=== PATIENT | female | born 1940 | race Caucasian/White ===

== ENCOUNTER 2020-04-05 08:52 | Outpatient (REF) | payer OTHER, SELFPAY | END 2020-04-05 08:53 | disposition home or self-care (01) | LOC: HO.LAB 08:52 | PROVIDERS: Visit Provider Internal Medicine | DX: Z20.822 Contact with and (suspected) exposure to COVID-19 (principal) | CPT/HCPCS: 36415; C9803; U0003; U0005 ==

== ENCOUNTER 2022-10-11 20:59 | Emergency (ER) | payer OTHER, SELFPAY ==
--- NOTE | ~2022-10-11 | CT_ITS ---
EXAMINATION: CT HEAD WITHOUT CONTRAST CT CERVICAL SPINE WITHOUT CONTRAST CT MAXILLOFACIAL WITHOUT CONTRAST CLINICAL INFORMATION: Fall. Head strike. Nasal bridge swelling/laceration. COMPARISON: None. TECHNIQUE: Multidetector volumetric imaging of the head was performed without the administration of intravenous contrast. Images were also obtained with through the cervical spine as well as the facial bones from the frontal sinuses through the mandible. Multiplanar reconstructed images in coronal and sagittal orientations were submitted. This CT examination was performed using dose optimization techniques as appropriate, variously including the following: *Automated exposure control *Adjustment of mA and/or kV according to patient size (this includes techniques or standardized protocols for targeted exams where dose is matched to indication/reason for exam; i.e. extremities or head) *Use of iterative reconstruction technique DOSE: 1079. mGy-cm FINDINGS: HEAD: There is no evidence of acute intracranial hemorrhage or territorial infarction. No abnormal mass-effect or midline shift. No extra-axial fluid collections. Brito to white matter differentiation is well preserved. Mild enlargement of the ventricles, sulci, and extra-axial CSF spaces is indicative of parenchymal volume loss. Dystrophic calcifications are present in the basal ganglia bilaterally. Numerous areas of hypoattenuation in the subcortical and periventricular white matter are most consistent with chronic microangiopathic changes. Calcific atherosclerosis is present within the cavernous segments of the internal carotid arteries. Globes are aphakic. Mild soft tissue swelling in the left superolateral periorbital region. No calvarial or skull base fractures are identified. The sinuses and mastoid air cells are clear. MAXILLOFACIAL: There is a mildly depressed fracture of the nasal bone which is asymmetric to the left. The mandible, maxilla, pterygoid plates, zygomatic arches, paranasal sinus mcnamara, and bony orbits are intact. No acute osseous abnormality within the maxillofacial region. Maxilla and mandible are edentulous. Maxillary dentures are in place. 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 Globes are aphakic. No post septal abnormalities. Intraconal and extraconal fat is normal, as are the extraocular muscles. The paranasal sinuses and mastoid air cells remain well-aerated. CERVICAL SPINE: Vertebral body heights are normal. No fractures of the vertebral bodies or posterior elements. Vertebral alignment is normal. No subluxation. The craniocervical and atlantoaxial articulations are normal. Qbwh-jt-dthmohkt multilevel degenerative disc disease in the cervical spine is most notable between C3-C4 and C5-C6. There is vwky-se-lpdwgpfx facet arthropathy on the left at C2-C3. Small posterior disc osteophyte complexes produce minimal central canal narrowing at multiple levels without appreciable critical central canal narrowing. Mild multilevel neural foraminal encroachment is produced by uncovertebral osteophytes. No significant paravertebral soft tissue swelling. Atherosclerotic calcifications are present in the carotid arteries. Imaged portions of the lung apices are clear. CT/CT cervical spine wo IV con IMPRESSION: 1. No acute intracranial pathology. Mild parenchymal volume loss and moderate chronic white matter microangiopathy. 2. Mildly depressed fracture of the nasal bone. No additional facial fractures. 3. No acute fracture or malalignment in the cervical spine. Tzmh-nt-gilctcuy multilevel degenerative disc disease.
--- NOTE | ~2022-10-11 | XR_ITS ---
EXAMINATION: XR knee LT 4V, XR knee RT 4V CLINICAL INFORMATION: Additional Information: pain, trauma : COMPARISON: None. TECHNIQUE: 4 views of the left knee. 4 views of the right knee. FINDINGS: Left knee: No fracture or subluxation. Mild to moderate tricompartmental joint space narrowing with marginal osteophytes noted. No joint effusion. Right knee: Total right knee arthroplasty. The femoral component articulates appropriately with the tibial and patellar components. No periprosthetic lucency or fracture. No definite joint effusion, although overlying material limits visualization on the lateral view. There appears to be medial soft tissue swelling. XR/XR knee LT 4V IMPRESSION: 1. 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 Medial soft tissue swelling. 2. Mild to moderate tricompartmental degenerative changes of the left knee.
--- NOTE | ~2022-10-11 | XR_ITS ---
EXAMINATION: XR knee LT 4V, XR knee RT 4V CLINICAL INFORMATION: Additional Information: pain, trauma : COMPARISON: None. TECHNIQUE: 4 views of the left knee. 4 views of the right knee. FINDINGS: Left knee: No fracture or subluxation. Mild to moderate tricompartmental joint space narrowing with marginal osteophytes noted. No joint effusion. Right knee: Total right knee arthroplasty. The femoral component articulates appropriately with the tibial and patellar components. No periprosthetic lucency or fracture. No definite joint effusion, although overlying material limits visualization on the lateral view. There appears to be medial soft tissue swelling. XR/XR knee RT 4V IMPRESSION: 1. 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 Medial soft tissue swelling. 2. Mild to moderate tricompartmental degenerative changes of the left knee.
--- NOTE | 2022-10-11 07:22 | ECG_ITS ---
Test Reason : FALL Blood Pressure : / mmHG Vent. Rate : 072 BPM Atrial Rate : 072 BPM P-R Int : 140 ms QRS Dur : 132 ms QT Int : 438 ms P-R-T Axes : 043 -31 105 degrees QTc Int : 479 ms Normal sinus rhythm Left axis deviation Left bundle branch block Abnormal ECG No previous ECGs available Referred By: Mili Kay Electronically Signed By:ALENA DAILEY
[2022-10-11 21:05] VITALS: BP 160/90; BP 189/79; PULSE 74; PULSE 80; RESP 17; TEMP 37.4; O2SAT 94; O2SAT 95; BMI 27.0
[2022-10-11 21:56] LABS: Hematocrit 42.6 % (37.0-47.0); Hemoglobin 13.4 g/dl (12.0-16.0); Mean Corpuscular HGB Conc 31.5 g/dl (31.0-35.0); Mean Corpuscular Hemoglobin 26.3 pg (27.0-33.0); Mean Corpuscular Volume 83.5 fL (80.0-98.0); Mean Platelet Volume 10.5 fL (9.4-12.3); Platelet Count 282 X10*3/uL (160-400); Red Cell Distribution Width 13.8 % (11.0-16.0); White Blood Count 12.4 X10*3/uL (4.8-10.8)
[2022-10-11 22:13] LABS: Alanine Aminotransferase 10 U/L (0-31); Albumin Level 3.4 g/dL (3.5-5.0); Alkaline Phosphatase 117 U/L (39-117); Anion Gap 12 (12-20); Aspartate Amino Transferase 11 U/L (5-31); Bilirubin Total 0.3 mg/dL (0.0-1.0); Blood Urea Nitrogen 15 mg/dL (9-16); Calcium 9.5 mg/dL (8.4-10.2); Carbon Dioxide 30 mmol/L (22-29); Chloride 101 mmol/L (96-108); Creatinine Clr Calc Pharmacy 39.1; Estimated Glomerular Filt Rate 60; Glucose Random 336 mg/dL (60-115); Potassium 4.7 mmol/L (3.3-5.1); Sodium 138 mmol/L (135-145); Total Protein 6.8 g/dL (6.5-8.0)
[2022-10-11 22:22] LABS: Troponin-I High Sensitivity < 2.7 ng/L (<3.5-17.0)
[2022-10-11 22:56] LABS: Appearance Urine Clear; Color Urine Yellow; Glucose Urine UA >=1000 mg/dL (Negative); Leukocyte Esterase Urine Negative (Negative); Nitrite Urine Positive (Negative); Specific Gravity - Urine >= 1.030 (1.005-1.025); UMIC TRIGGER UACC YES; Urine Blood Negative (Negative); Urine Ketones Negative (Negative); Urine Protein Negative (Neg-Trace)
[2022-10-11 23:00] LABS: Bacteria Urine 4+ (None Seen); Hyaline Casts Urine 0-2 /LPF (0-2); RBC Urine 0-2 /HPF (0-2); Squamous Epithelial Cell Urine 0-2 /HPF (0-2); UACC Culture Trigger YES
[2022-10-11 23:10] VITALS: BP 174/62; PULSE 71; RESP 16; TEMP 36.8; O2SAT 96
--- NOTE | 2022-10-11 23:57 | ED.FALL ---
HPI - Fall General Chief Complaint: Fall Stated Complaint: FALL W/HS, LACERATIONS ON NOSE PER EMS Time Seen by Provider: 10/11/22 23:08 Source: patient, family and EMS Mode of arrival: EMS Limitations: language barrier (Malagasy-speaking associate marketing manager utilized) History of Present Illness HPI Narrative: Patient is an 82-year-old female who presents to the emergency department via EMS for evaluation after a fall. Patient was in her bedroom sitting in a recliner chair. Typically patient's daughter assists her with medication administration. Tonight patient attempted to retrieve her medications which were across the room on the night stand on her own. She typically uses a walker at baseline she was not using her walker olga lidia. Her daughter was downstairs when she heard a loud noise and she presented upstairs immediately finding patient on the floor face down. Patient was awake and asking for help to get up. Patient was assisted to a sitting position and EMS was called. She has a laceration to the bridge of the nose which was actively bleeding. Patient denied any loss of consciousness. Denies the use of anticoagulants or coagulation disorders. She is having pain to the frontal region of the head. Denies vision changes, dizziness, lightheadedness, neck pain, chest pain, shortness of breath, nausea, vomiting. She additionally is reporting bilateral knee pain. Patient endorses dysuria that has been present for approximately 2 weeks, reportedly was just mention to daughter yesterday. Denies fevers or chills. Related Data Previous Rx's Medication Instructions Recorded cefuroxime axetil 500 mg tablet 500 mg PO BID #13 tabs 10/12/22 Allergies Allergy/AdvReac Type Severity Reaction Status Date / Time Unable to Assess Allergy Unverified 10/11/22 23:09 Review of Systems Review of Systems: Pertinent positives as per HPI Yes all other systems are reviewed and are negative PMFSH Past Medical History Attestation statement: The following information was validated with the patient. Source: old records reviewed Social History Social History Alcohol intake: unknown Smoked in Last 30 Days: No Use of substances other than those prescribed or required for medical reasons: No Advance Directives: No Advance Directives Information Provided: Yes Physical Exam Vital Signs: Vital Signs: Last Vital Signs Temp 98.2 F 10/11/22 23:10 Pulse 71 10/11/22 23:10 Resp 16 10/11/22 23:10 BP 174/62 H 10/11/22 23:10 Pulse Ox 96 10/11/22 23:10 O2 Del Method Room Air 10/11/22 23:10 BMI result Body Mass Index 27.0 Appearance: Alert.?Oriented to person, place and time. No acute distress.?Normal affect. Head: Normocephalic. No scalp lacerations Eyes: Pupils equal, round and reactive to light. EOMI. Conjunctiva and sclera normal? No Robison sign noted. No raccoon eyes noted. hematoma presenting to lateral left eyebrow ENT: No septal hematoma, localized swelling to the nasal bridge, superficial laceration present, with deformity, no active bleeding. External auditory canal normal tympanic membrane pearly crawford and intact bilaterally. Dentition normal, no fractured teeth. No lesions or lacerations of oropharynx. Uvula midline. Moist mucous membranes. Neck: Normal inspection.? Neck supple.??No palpable tenderness, step-off, deformities. CVS: Heart sounds normal. Normal heart rate and rhythm.? Pulses normal.?? Respiratory: No respiratory distress.? Lung sounds clear to auscultation bilaterally?? Abdomen: Soft and non-tender. Normoactive bowel sounds. ?? Skin: Skin warm and dry.? Normal skin color.? Normal skin turgor.?? Extremities: No lower extremity edema.? Bilateral knees with decreased AROM, localized bruising, tenderness upon palpation, no obvious deformity. 2+ DP/PT pulse bilaterally. Neuro: Moves all extremities spontaneously. Sensation intact bilaterally. CN II-XII intact. No focal neuro deficits. Course Reevaluation(s) Reevaluation #1: CT revealing no acute intracranial pathology, there is mildly depressed fracture of the nasal bone, cervical spine is without acute fracture malalignment, degenerative disc disease is present. No epistaxis upon examination, no septal hematoma present, will refer to ENT for further follow-up. Given presence of laceration over nasal bridge patient had Tdap updated. Urinalysis consistent with urinary tract infection, received initial dosage of cefuroxime while in the emergency department, this will also prophylactically cover any infection from nasal laceration. Time: 00:58 Reevaluation #2: XR the bilateral knees without acute fracture, dislocation, or hardware failure. Reviewed all findings with patient and daughter. At this time feel the patient is stable for discharge home. They are agreeable with plan of care. We reviewed worrisome signs symptoms that would warrant re-evaluation in the emergency department. All questions were answered. Time: 01:52 Medications Administered Discontinued Medications Generic Name Dose Route Start Last Admin Trade Name Jose Eduardo PRN Reason Stop Dose Admin Acetaminophen 975 mg 10/12/22 00:16 10/12/22 01:38 Acetaminophen 325 Mg Tablet PO 10/12/22 00:17 975 mg ONCE ONE Administration Cefuroxime Axetil 500 mg 10/11/22 23:10 10/12/22 01:38 Cefuroxime Axetil 500 Mg Tablet PO 10/11/22 23:11 500 mg ONCE ONE Administration Tramadol HCl 50 mg 10/12/22 01:14 10/12/22 01:39 Tramadol Hcl 50 Mg Tablet PO 10/12/22 01:15 50 mg ONCE ONE Administration Medical Decision Making Medical Decision Making [facility] Narrative: Patient is an 82-year-old female presents emergency department via EMS for evaluation after a fall as per HPI. She uses a walker at baseline but she was not using at the time of the fall, patient and daughter feel as though fall was mechanical in nature. However will obtain serum labs and urinalysis for evaluation of alternative etiology. She has no focal neurological deficits upon examination, she has significant bruising and swelling to the nasal bridge with deformity and hematoma to the left breast. Clinically does not appear to have and signs of entrapment. Will obtain CT of the head, cervical spine, and facial bones to evaluate for ICH, SDH, fracture, traumatic subluxation. Full AROM intact to the bilateral upper extremities. Bilateral knees with mild decreased AROM, tenderness upon palpation with bruising. Will obtain XR imaging to exclude fracture or dislocation. Urinalysis to evaluate for infection Differential Diagnosis Differential Diagnoses: The differential diagnosis associated with the presentation includes (As noted above) Lab Data [facility] Lab Attestation statement: I reviewed the patient's lab results. CBC reveals a mild leukocytosis of 12.4, CMP is overall unremarkable aside from elevated glucose at 03:36, with history of diabetes. Troponin < 2.7. Urinalysis consistent with urinary tract infection 10/11/22 21:46 10/11/22 21:46 Labs: Lab Results 10/11/22 10/11/22 10/11/22 Range/Units 21:46 21:46 21:46 WBC 12.4 H (4.8-10.8) X10*3/uL RBC 5.10 (4.20-5.50) X10*6/uL Hgb 13.4 (12.0-16.0) g/dl Hct 42.6 (37.0-47.0) % MCV 83.5 (80.0-98.0) fL MCH 26.3 L (27.0-33.0) pg MCHC 31.5 (31.0-35.0) g/dl RDW 13.8 (11.0-16.0) % Plt Count 282 (160-400) X10*3/uL MPV 10.5 (9.4-12.3) fL Absolute Nucleated RBC 0.000 (0.0-0.012) X10*3/uL Nucleated RBC % (auto) 0.0 (0.0-0.2) /100WBC Sodium 138 (135-145) mmol/L Potassium 4.7 (3.3-5.1) mmol/L Chloride 101 (96-108) mmol/L Carbon Dioxide 30 H (22-29) mmol/L Anion Gap 12 (12-20) BUN 15 (9-16) mg/dL Creatinine 0.90 (0.5-1.4) mg/dL Estim Creat Clear Calc 39.1 Estimated GFR 60 Random Glucose 336 H (60-115) mg/dL Calcium 9.5 (8.4-10.2) mg/dL Total Bilirubin 0.3 (0.0-1.0) mg/dL AST 11 (5-31) U/L ALT 10 (0-31) U/L Alkaline Phosphatase 117 (39-117) U/L Troponin I High Sens < 2.7 (<3.5-17.0) ng/L Total Protein 6.8 (6.5-8.0) g/dL Albumin 3.4 L (3.5-5.0) g/dL Urine Color Urine Appearance Urine pH (5.0-9.0) Ur Specific [employer] (1.005-1.025) Urine Protein (Neg-Trace) mg/dL Urine Glucose (UA) (Negative) mg/dL Urine Ketones (Negative) mg/dL Urine Blood (Negative) Urine Nitrite (Negative) Ur Leukocyte Esterase (Negative) Urine RBC (0-2) /HPF Urine WBC (0-5) /HPF Ur Squamous Epith Cells (0-2) /HPF Urine Bacteria (None Seen) Hyaline Casts (0-2) /LPF 10/11/22 Range/Units 22:46 WBC (4.8-10.8) X10*3/uL RBC (4.20-5.50) X10*6/uL Hgb (12.0-16.0) g/dl Hct (37.0-47.0) % MCV (80.0-98.0) fL MCH (27.0-33.0) pg MCHC (31.0-35.0) g/dl RDW (11.0-16.0) % Plt Count (160-400) X10*3/uL MPV (9.4-12.3) fL Absolute Nucleated RBC (0.0-0.012) X10*3/uL Nucleated RBC % (auto) (0.0-0.2) /100WBC Sodium (135-145) mmol/L Potassium (3.3-5.1) mmol/L Chloride (96-108) mmol/L Carbon Dioxide (22-29) mmol/L Anion Gap (12-20) BUN (9-16) mg/dL Creatinine (0.5-1.4) mg/dL Estim Creat Clear Calc Estimated GFR Random Glucose (60-115) mg/dL Calcium (8.4-10.2) mg/dL Total Bilirubin (0.0-1.0) mg/dL AST (5-31) U/L ALT (0-31) U/L Alkaline Phosphatase (39-117) U/L Troponin I High Sens (<3.5-17.0) ng/L Total Protein (6.5-8.0) g/dL Albumin (3.5-5.0) g/dL Urine Color Yellow Urine Appearance Clear Urine pH 6.0 (5.0-9.0) Ur Specific [employer] >= 1.030 H (1.005-1.025) Urine Protein Negative (Neg-Trace) mg/dL Urine Glucose (UA) >=1000 H (Negative) mg/dL Urine Ketones Negative (Negative) mg/dL Urine Blood Negative (Negative) Urine Nitrite Positive H (Negative) Ur Leukocyte Esterase Negative (Negative) Urine RBC 0-2 (0-2) /HPF Urine WBC 6-10 H (0-5) /HPF Ur Squamous Epith Cells 0-2 (0-2) /HPF Urine Bacteria 4+ (None Seen) Hyaline Casts 0-2 (0-2) /LPF Independent Interpretation I performed an independent interpretation of an: Plain X-Ray (I personally interpreted XR imaging of the bilateral knees, no acute fracture dislocation, hardware to the right knee appears intact) Radiology Impression Discussion of test interpretation with radiology: I have reviewed the radiologist's reading. Radiologist Impression: CT/CT head/brain wo IV con IMPRESSION: 1.? No acute intracranial pathology. Mild parenchymal volume loss and moderate chronic white matter microangiopathy. 2.? Mildly depressed fracture of the nasal bone. No additional facial fractures. 3.? No acute fracture or malalignment in the cervical spine. Hqka-kj-sasyxgnx multilevel degenerative disc disease. XR/XR knee RT 4V IMPRESSION: 1.? 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 Medial soft tissue swelling. 2.? Mild to moderate tricompartmental degenerative changes of the left knee. Independent Historian Clinical information obtained from an independent historian. History obtained from or confirmed by: Other (Daughters present at bedside who confirms history) External Record Review External record reviewed: Outpatient record Prescription Management I considered prescription management with: Antibiotic Discharge Plan Discharge Clinical Impression: Urinary tract infection, Acute head injury without loss of consciousness, Fracture of nasal bone, Fall Patient Disposition: Home, Self-Care Additional Instructions: Complete the entire course of antibiotic as prescribed for management of urinary tract infection. Contact ENT office tomorrow morning for follow-up regarding the nasal bone fracture. Contact primary care provider to arrange for a follow-up visit within 1-3 days. Return back to emergency department any new or worsening symptoms or concerns. Use walker at all times. Prescriptions: New cefuroxime axetil 500 mg tablet 500 mg PO BID Qty: 13 0RF Referrals: Bre Samuel NP [Primary Care Provider] - Rod Carmona [Physician] -
[2022-10-12] MEDS: Acetaminophen 325 MG TABLET 975 MG PO (01:38)
[2022-10-12] MEDS: traMADoL HCL 50 MG TABLET PO (01:39)
[2022-10-12] MEDS: Diphth,Pertus(ACell),Tet Adult 0.5 ML SYRINGE IM (02:19)
[2022-10-12 02:26] VITALS: BP 170/97; PULSE 69; RESP 17; TEMP 36.8; O2SAT 98
--- NOTE | 2022-10-12 02:26 | PC.NURSE ---
BP 170/97. Patient symptomatic-denies headache, chest pain. Dr. Regina mota.
== END 2022-10-12 02:36 | disposition home or self-care (01) ==
PROVIDERS: Emergency Provider Emergency Medicine Emergency Medical Services; PCP Nurse Practitioner
DX: S00.01XA Abrasion of scalp, initial encounter (principal); S02.2XXA Fracture of nasal bones, initial encounter for closed fracture; N39.0 Urinary tract infection, site not specified; R51.9 Headache, unspecified; M54.2 Cervicalgia; R07.89 Other chest pain; M25.562 Pain in left knee; M25.561 Pain in right knee; W01.10XA Fall on same level from slipping, tripping and stumbling with subsequent striking against unspecified object, initial encounter; Y93.9 Activity, unspecified; Y92.9 Unspecified place or not applicable; Y99.9 Unspecified external cause status; Z79.899 Other long term (current) drug therapy
CPT/HCPCS: 36415; 70450; 70486; 72125; 73564; 80053; 81001; 84484; 85027; 87086; 87088; 87186; 90715; 93005; 99284

== ENCOUNTER 2023-09-26 22:03 | Emergency (ER) | payer OTHER, SELFPAY ==
--- NOTE | ~2023-09-26 | XR_ITS ---
EXAMINATION: CHEST WITH LEFT RIBS, LEFT SHOULDER, LEFT HIP, LEFT KNEE CLINICAL INFORMATION: Fall with pain COMPARISON: Left knee 10/12/2022 TECHNIQUE: Single view chest with 3 additional views left RIBS, 3 views left shoulder, single view pelvis with 2 additional views left hip, 2 views left knee FINDINGS: Chest and Ribs: No significant abnormalities seen involving the heart, lungs, mediastinum and bony thorax. Left shoulder: Degenerative changes are present at the AC joint and at the glenohumeral humeral joint with osteophytes. No fractures or dislocations. Pelvis and left hip degenerative changes are present in the visualized lower lumbosacral spine. No pelvic fracture or hip fracture is seen. Left knee: Moderate tricompartmental degenerative changes are seen with narrowing in all 3 compartments. No chondrocalcinosis, fractures or dislocations. XR/XR shoulder LT min 2V IMPRESSION: 1. No evidence of an acute traumatic injury. 2. Degenerative changes in the left shoulder, left knee and lower lumbosacral spine.
--- NOTE | ~2023-09-26 | XR_ITS ---
EXAMINATION: CHEST WITH LEFT RIBS, LEFT SHOULDER, LEFT HIP, LEFT KNEE CLINICAL INFORMATION: Fall with pain COMPARISON: Left knee 10/12/2022 TECHNIQUE: Single view chest with 3 additional views left RIBS, 3 views left shoulder, single view pelvis with 2 additional views left hip, 2 views left knee FINDINGS: Chest and Ribs: No significant abnormalities seen involving the heart, lungs, mediastinum and bony thorax. Left shoulder: Degenerative changes are present at the AC joint and at the glenohumeral humeral joint with osteophytes. No fractures or dislocations. Pelvis and left hip degenerative changes are present in the visualized lower lumbosacral spine. No pelvic fracture or hip fracture is seen. Left knee: Moderate tricompartmental degenerative changes are seen with narrowing in all 3 compartments. No chondrocalcinosis, fractures or dislocations. XR/XR hip LT w PEL1V IMPRESSION: 1. No evidence of an acute traumatic injury. 2. Degenerative changes in the left shoulder, left knee and lower lumbosacral spine.
--- NOTE | ~2023-09-26 | XR_ITS ---
EXAMINATION: CHEST WITH LEFT RIBS, LEFT SHOULDER, LEFT HIP, LEFT KNEE CLINICAL INFORMATION: Fall with pain COMPARISON: Left knee 10/12/2022 TECHNIQUE: Single view chest with 3 additional views left RIBS, 3 views left shoulder, single view pelvis with 2 additional views left hip, 2 views left knee FINDINGS: Chest and Ribs: No significant abnormalities seen involving the heart, lungs, mediastinum and bony thorax. Left shoulder: Degenerative changes are present at the AC joint and at the glenohumeral humeral joint with osteophytes. No fractures or dislocations. Pelvis and left hip degenerative changes are present in the visualized lower lumbosacral spine. No pelvic fracture or hip fracture is seen. Left knee: Moderate tricompartmental degenerative changes are seen with narrowing in all 3 compartments. No chondrocalcinosis, fractures or dislocations. XR/XR ribs LT min 3V w CXR1V IMPRESSION: 1. No evidence of an acute traumatic injury. 2. Degenerative changes in the left shoulder, left knee and lower lumbosacral spine.
--- NOTE | ~2023-09-26 | XR_ITS ---
EXAMINATION: CHEST WITH LEFT RIBS, LEFT SHOULDER, LEFT HIP, LEFT KNEE CLINICAL INFORMATION: Fall with pain COMPARISON: Left knee 10/12/2022 TECHNIQUE: Single view chest with 3 additional views left RIBS, 3 views left shoulder, single view pelvis with 2 additional views left hip, 2 views left knee FINDINGS: Chest and Ribs: No significant abnormalities seen involving the heart, lungs, mediastinum and bony thorax. Left shoulder: Degenerative changes are present at the AC joint and at the glenohumeral humeral joint with osteophytes. No fractures or dislocations. Pelvis and left hip degenerative changes are present in the visualized lower lumbosacral spine. No pelvic fracture or hip fracture is seen. Left knee: Moderate tricompartmental degenerative changes are seen with narrowing in all 3 compartments. No chondrocalcinosis, fractures or dislocations. XR/XR knee LT 2V IMPRESSION: 1. No evidence of an acute traumatic injury. 2. Degenerative changes in the left shoulder, left knee and lower lumbosacral spine.
[2023-09-26 22:12] VITALS: BP 151/59; PULSE 76; RESP 16; TEMP 36.7; O2SAT 94; BMI 24.9
[2023-09-26 22:45] LABS: Appearance Urine Clear; Color Urine Yellow; Glucose Urine UA >=1000 mg/dL (Negative); Leukocyte Esterase Urine Negative (Negative); Nitrite Urine Negative (Negative); PH 5.5 (5.0-9.0); Specific Gravity - Urine >= 1.030 (1.005-1.025); UMIC TRIGGER UACC YES; Urine Blood Negative (Negative); Urine Ketones Negative (Negative); Urine Protein Negative (Neg-Trace)
[2023-09-26 22:47] LABS: Bacteria Urine Trace (None Seen); Hyaline Casts Urine 0-2 /LPF (0-2); RBC Urine 0-2 /HPF (0-2); WBC Urine 0-5 /HPF (0-5)
--- NOTE | 2023-09-26 22:58 | ED_ITS ---
HPI - General Adult General Chief complaint: Extremity Injury, Lower Stated complaint: Lt leg pain, fell 09/24 @ 1100 @ home Time Seen by Provider: 09/26/23 22:21 Source: patient and family Mode of arrival: ambulatory Limitations: no limitations History of Present Illness ED Provider: Dr. Carley Borges HPI narrative: Patient comes to the emergency room complaining of a fall. According to the patient's daughter, the patient is supposed to wait for her daughter to help her walk. However, patient grab her walker and decided to try to walk out of the house by herself. Patient fell, landed on the left side of her body. Patient did not hit her head and did not lose consciousness, patient not on blood thinners. Patient states that yesterday patient was complaining of left shoulder pain left rib pain in the hip pain. However, patient was still able to ambulate. This morning, the daughter reports that now the patient has trouble walking, the patient complaining of knee pain. Patient has also left shoulder pain but is still able to move her arm with normal range of motion. Patient states that otherwise she feels well. Denies headache, no neck pain. Related Data Previous Rx's ?Medication ?Instructions ?Recorded cefuroxime axetil 500 mg tablet 500 mg PO BID #13 tabs 10/12/22 acetaminophen 500 mg tablet 500 mg PO QID PRN fever or pain 09/27/23 #20 tabs ibuprofen 600 mg tablet 600 mg PO Q8H PRN fever or pain 09/27/23 #20 tabs Allergies Allergy/AdvReac Type Severity Reaction Status Date / Time Penicillins Allergy Rash Verified 09/26/23 22:22 Review of Systems Review of Systems: Constitutional : No Weight loss, No Fever, No Chills, No Night Sweats, No Fatigue, No Malaise ENT/Mouth : No Hearing loss, No Ear Pain, No Nasal Congestion, No Sinus Pain, No Hoarseness, No sore throat, No Rhinorrhea, No Swallowing Difficulty Eyes: No Eye Pain, No Swelling, No Redness, No Foreign Body, No Discharge, No Vision Changes Cardiovascular : No Chest Pain, No SOB, No Dyspnea on Exertion, No Orthopnea, No Edema, No Palpitations Respiratory : No Cough, No Sputum, No Wheezing, No Smoke Exposure, No Dyspnea Gastrointestinal : No Nausea, No Vomiting, No Diarrhea, No Constipation, No a bdominal Pain, No Hematochezia, No Melena Genitourinary : no irregular bleeding, No Dysuria, No Urinary Frequency, No Hematuria, No Urinary Incontinence, No Urgency, No Flank Pain, No Urinary Flow Changes, No Hesitancy Musculoskeletal : Complaining of left shoulder/hip/knee pain Skin : No Skin Lesions, No rash Neuro : No Weakness, No Numbness, No Paresthesias, No Loss of Consciousness, No Dizziness, No Headache Psych : No Anxiety/Panic, No Depression, No SI/HI/AH/VH, No Social Issues, Heme/Lymph: No Bruising, No Bleeding,No Lymphadenopathy Endocrine : No Polyuria, No Polydipsia, No Temperature Intolerance [facility] Past Medical History Medical History (Updated 09/27/23 @ 00:14 by Carley Borges MD) Multiple falls Diabetes Social History Social History Alcohol intake: unknown Smoked in Last 30 Days: No Advance Directives: No Advance Directives Information Provided: No Physical Exam ED Vital Signs: Vital Signs - 24 hr 09/26/23 22:12 Temperature 98.1 F Pulse Rate 76 Respiratory Rate 16 Blood Pressure 151/59 H Pulse Oximetry 94 Oxygen Delivery Method Room Air BMI result Body Mass Index 24.9 Const Other: Appearance: Alert. Oriented X3. No acute distress. Eyes: Pupils equal, round and reactive to light. ENT: Pharynx normal. Neck: Normal inspection. Neck supple. No lymph nodes noted. No crepitus CVS: Normal heart rate and rhythm. Pulses normal. Normal S1 and S2 Respiratory: No respiratory distress. Breath sounds normal. No Wheezing. No rales Abdomen: Soft and nontender. No rigidity. No distention. Musculoskeletal. Pain to palpation over the ribs on the left side Skin: Skin warm and dry. Normal skin color. Normal skin turgor. Extremities: No lower extremity edema. No Lacerations. No Rash, pain to palpation over the left knee, able to flex and extend the ankle and the hip Neuro: Oriented X 3. No motor deficit. No sensory deficit. Moving all extremities. No slurred speech. CN 2 through 12 grossly intact Psych: calm, cooperative, normal affect Course Course Course Narrative: -urinalysis pending -x-rays pending Medical Decision Making Lab Data Labs: Lab Results 09/26/23 Range/Units 22:39 Urine Color Yellow Urine Appearance Clear Urine pH 5.5 (5.0-9.0) Ur Specific [place] >= 1.030 H (1.005-1.025) Urine Protein Negative (Neg-Trace) mg/dL Urine Glucose (UA) >=1000 H (Negative) mg/dL Urine Ketones Negative (Negative) mg/dL Urine Blood Negative (Negative) Urine Nitrite Negative (Negative) Ur Leukocyte Esterase Negative (Negative) Urine RBC 0-2 (0-2) /HPF Urine WBC 0-5 (0-5) /HPF Ur Squamous Epith Cells 3-5 (0-2) /HPF Urine Bacteria Trace (None Seen) Hyaline Casts 0-2 (0-2) /LPF Discharge Plan Discharge Clinical Impression: COVID Patient Disposition: Home, Self-Care Instructions: Contusion in Adults (ED), Knee Pain (ED) Additional Instructions: Please follow-up with your primary care physician tomorrow. If you have any worsening or new symptoms, please return to the emergency room or call 911 Prescriptions: New ibuprofen 600 mg tablet 600 mg PO Q8H PRN (Reason: fever or pain) Qty: 20 0RF acetaminophen 500 mg tablet 500 mg PO QID PRN (Reason: fever or pain) Qty: 20 0RF No Action cefuroxime axetil 500 mg tablet 500 mg PO BID Qty: 13 0RF Interventions: ED Discharge Assessment Last Done: 09/27/23 00:20 Discharge Date/Time: 09/27/23 00:26 Print Language: Ukrainian
--- OUTSIDE RECORDS SUMMARY | 2023-09-26 23:45 | XMS_ITS | Continuity of Care Document ---
Author Organization [facility] Address Unknown Care Team Providers Care Production Team Leader Name Role Phone Lizzie GAUTAM, Bre Reynolds Primary Care Physician Encounter [facility] [place] Date(s): 08/02/21 - 09/01/21 [facility] Attending Physician: Ish Crow Admitting Physician: Ish Crow Referring Physician: Ish Crow Referring Physician: Dorita Sauer Allergies, Adverse Reactions, Alerts Substance Reaction Severity Status penicillin rash Active Shrimp Active Other Environmental Allergy Active Medications aspirin 81 mg oral tablet 1 tablet = 81 mg, By Mouth, Daily, # 30 tablet, 1 Refills, Maintenance, 02/19/18 10:40:46 EST, Tablet Start Date: 02/19/18 Stop Date: 04/20/18 Status: Ordered Boniva 150 mg oral tablet 1 tablet = 150 mg, By Mouth, Every 30 days, # 1 tablet, 0 Refills, Maintenance, 01/07/14 12:36:04, Tablet Start Date: 01/07/14 Status: Ordered diclofenac 1% topical gel 1 application, Topically, 2 times a day, PRN for pain, # 100 Gm, 0 Refills, Maintenance, 02/14/18 2:58:57 EST, Gel Start Date: 02/14/18 Status: Ordered Flonase 2 sprays, Daily, 0 Refills, Maintenance, 01/07/14 12:34:37 Start Date: 01/07/14 Status: Ordered folic acid 1 mg oral tablet 1 mg, 1, tablet, By Mouth, Daily, # 30 tablet, Refills 1, Tot. Refills 1, Maintenance, 02/19/18 10:40:53 EST, Route to Pharmacy Electronically, [id number], [facility]/pharmacy #[id number] Start Date: 02/19/18 Stop Date: 04/20/18 Status: Ordered glipiZIDE 10 mg oral tablet 1 tablet = 10 mg, By Mouth, 2 times a day, # 60 tablet, 0 Refills, Maintenance, 02/19/18 10:40:15 EST, Tablet Start Date: 02/19/18 Stop Date: 03/21/18 Status: Ordered Lantus Inj = 27 units, Subcutaneous Injection, Daily at bedtime, 27-30 units, 0 Refills, Maintenance, 183:58:57 EST, Injection Start Date: 02/14/18 Status: Ordered levothyroxine 75 mcg (0.075 mg) oral tablet 1 tablet = 75 mcg, By Mouth, Daily, # 30 tablet, 2 Refills, Maintenance, 02/19/18 10:41:05 EST, Tablet Start Date: 02/19/18 Stop Date: 05/20/18 Status: Ordered loratadine 10 mg oral tablet 10 mg, 1, tablet, By Mouth, Daily, # 7 tablet, Refills 0, Tot. Refills 0, Maintenance, 02/19/18 10:41:13 EST, Route to Pharmacy Electronically, [id number], [facility]/pharmacy #[id number] Start Date: 02/19/18 Stop Date: 02/26/18 Status: Ordered losartan 25 mg oral tablet 25 mg, 1, tablet, By Mouth, Daily, # 30 tablet, Refills 1, Tot. Refills 1, Maintenance, 02/19/18 10:41:22 EST, Route to Pharmacy Electronically, [id number], [facility]/pharmacy #[id number] Start Date: 02/19/18 Stop Date: 04/20/18 Status: Ordered meclizine 25 mg oral tablet 1 tablet = 25 mg, By Mouth, 2 times a day, PRN as needed for nausea/vomiting, # 60 tablet, 0 Refills, Maintenance, 02/14/18 2:59:24 EST, Tablet Start Date: 02/14/18 Status: Ordered Norvasc 10 mg oral tablet 10 mg, By Mouth, Daily, # 30 tablet, Refills 1, Tot. Refills 1, Maintenance, 02/19/18 10:40:31 EST,Route to Pharmacy Electronically, [id number], [facility]/pharmacy #[id number] Start Date: 02/19/18 Stop Date: 04/20/18 Status: Ordered Prilosec 40 mg oral enteric coated capsule 1 capsule = 40 mg, By Mouth, Daily, # 30 capsule, 0 Refills, Maintenance, EC Capsule Start Date: 09/04/12 Status: Ordered trazodone 50 mg oral tablet 1 tablet = 50 mg, By Mouth, Daily at bedtime, # 30 tablet, 0 Refills, Maintenance, 01/07/14 12:34:28, Tablet Start Date: 01/07/14 Status: Ordered Problem List Condition Effective Dates Status Health Status Inform ant Diverticulitis(Confirmed) Active Facet joint syndrome(Confirmed) Active GERD (gastroesophageal reflu x disease)(Confirmed) Active Hypertension(Confirmed) Active Hypothyroidism(Confirmed) Active Osteoarthritis(Confirmed) Active SLE (systemic lupus erythematosus)(Confirmed) Active Type 2 diabetes mellitus(Confirmed) Active Social History Social History Type Response Smoking Status Former smoker, quit more than 30 days ago entered on: 02/14/18 Sex
--- OUTSIDE RECORDS SUMMARY | 2023-09-26 23:45 | XMS_ITS | Continuity of Care Document ---
Author Organization [facility] Address [address] [facility], [address], [address] [place] [id number]- Care Team Providers Care Medical Detail Representative Name Role Phone Lizzie GAUTAM, Bre Reynolds Primary Care Physician [phone] Encounter [facility] AC[facility] R [id number] Date(s): 10/07/21 - 11/06/21 [facility] [address] [facility], [address]rd Floor, [address] [place] [id number]- Attending Physician: Ish Crow Admitting Physician: Ish Crow Referring Physician: Ish Crow Referring Physician: Dorita Sauer Referring Physician: Dorita Sauer Allergies, Adverse Reactions, [...] 02/19/18 10:40:53 EST, Route to Pharmacy Electronically, [id number], [facility]/pharmacy #[id number] Start Date: 02/19/18 Stop Date: [...] 02/19/18 10:41:13 EST, Route to Pharmacy Electronically, [id number], [facility]/pharmacy #[id number] Start Date: 02/19/18 Stop Date: 02/26/18 Status: Ordered losartan 25 mg oral tablet 25 mg, 1, tablet, By Mouth, Daily, # 30 tablet, Refills 1, Tot. Refills 1, Maintenance, 02/19/18 10:41:22 EST, Route to Pharmacy Electronically, [id number], [facility]/pharmacy #[id number] Start Date: 02/19/18 Stop Date: [...] Maintenance, 02/19/18 10:40:31 EST,Route to Pharmacy Electronically, [id number], [facility]/pharmacy #[id number] Start Date: 02/19/18 Stop Date: [...] 30 days ago entered on: 02/14/18 Sex Care Team Personnel Name: Bre Samuel NP Address: [address] [place] [address]
--- OUTSIDE RECORDS SUMMARY | 2023-09-26 23:45 | XMS_ITS | Continuity of Care Document ---
Author Organization [facility] Address [address] [facility], [address] Floor, [address] [place] [id number]- Care Team Providers Care Forestry Laborer Name Role Phone Lizzie GAUTAM, Bre Reynolds Primary Care Physician [phone] Encounter [facility] [place] Date(s): 08/02/21 - 11/06/21 [facility] [address] [facility], [address]rd Floor, [address] [place] [address]- Attending Physician: Kenzie Fuller MD Admitting Physician: Kenzie Fuller MD Referring Physician: Lizzie GAUTAM, Bre Reynolds Allergies, Adverse Reactions, Alerts Substance Reaction Severity [...] 02/19/18 10:40:53 EST, Route to Pharmacy Electronically, [id number], [facility]/pharmacy #[id number] Start Date: 02/19/18 Stop Date: 04/20/18 Status: Ordered glipiZIDE 10 mg oral tablet 1 tablet = 10 mg, By Mouth, 2 times a day, # 60 tablet, 0 Refills, Maintenance, 02/19/18 10:40:15 EST, Tablet Start Date: 02/19/18 Stop Date: 03/21/18 Status: Ordered Lantus Inj = 27 units, Subcutaneous Injection, Daily at bedtime, 27-30 units, 0 Refills, Maintenance, :58:57 EST, Injection Start Date: 02/14/18 Status: Ordered [...] 02/19/18 10:41:13 EST, Route to Pharmacy Electronically, [id number], [facility]/pharmacy #[id number] Start Date: 02/19/18 Stop Date: 02/26/18 Status: Ordered losartan 25 mg oral tablet 25 mg, 1, tablet, By Mouth, Daily, # 30 tablet, Refills 1, Tot. Refills 1, Maintenance, 02/19/18 10:41:22 EST, Route to Pharmacy Electronically, [id number], [facility]/pharmacy #[id number] Start Date: 02/19/18 [...] Maintenance, 02/19/18 10:40:31 EST,Route to Pharmacy Electronically, [id number], [facility]/pharmacy #[id number] Start Date: 02/19/18 [...] Team Personnel Name: Bre Samuel NP Address: [address] [place] [address]
--- OUTSIDE RECORDS SUMMARY | 2023-09-26 23:45 | XMS_ITS | Continuity of Care Document ---
Author Organization [facility] Address Unknown Care Team Providers Care Nursing Home Manager Name Role Phone Lizzie GAUTAM, Bre Reynolds Primary Care Physician [phone] [facility] [place] Date(s): 05/16/21 - 06/17/21 [facility] Attending Physician: Nicole Siddiqui Admitting Physician: Nicole Siddiqui Referring Physician: Bre Samuel NP Allergies, Adverse Reactions, Alerts Substance Reaction Severity [...] 02/19/18 10:40:53 EST, Route to Pharmacy Electronically, [id number], [facility]/pharmacy #[id number] Start Date: 02/19/18 Stop Date: 04/20/18 [...] 02/19/18 10:41:13 EST, Route to Pharmacy Electronically, [id number], [facility]/pharmacy #[id number] Start Date: 02/19/18 Stop Date: 02/26/18 Status: Ordered losartan 25 mg oral tablet 25 mg, 1, tablet, By Mouth, Daily, # 30 tablet, Refills 1, Tot. Refills 1, Maintenance, 02/19/18 10:41:22 EST, Route to Pharmacy Electronically, [id number], [facility]/pharmacy #[id number] Start Date: 02/19/18 Stop Date: 04/20/18 [...] Maintenance, 02/19/18 10:40:31 EST,Route to Pharmacy Electronically, [id number], [facility]/pharmacy #[id number] Start Date: 02/19/18 Stop Date: 04/20/18 [...]
--- OUTSIDE RECORDS SUMMARY | 2023-09-26 23:45 | XMS_ITS | Continuity of Care Document ---
Author Organization [facility] Address Unknown Care Team Providers Care Vessel Builder Name Role Phone Lizzie GAUTAM, Bre Reynolds Primary Care Physician [phone] Encounter [facility] [place] Date(s): 05/17/21 - 09/01/21 [facility] Attending Physician: Kenzie Fuller MD Admitting Physician: Kenzie Fuller MD Referring Physician: Bre Samuel NP Allergies, Adverse [...] 02/19/18 10:40:53 EST, Route to Pharmacy Electronically, [id number], [facility]/pharmacy #[id number] Start Date: 02/19/18 Stop Date: 04/20/18 [...] 02/19/18 10:41:13 EST, Route to Pharmacy Electronically, [id number], [facility]/pharmacy #[id number] Start Date: 02/19/18 Stop Date: 02/26/18 Status: Ordered losartan 25 mg oral tablet 25 mg, 1, tablet, By Mouth, Daily, # 30 tablet, Refills 1, Tot. Refills 1, Maintenance, 02/19/18 10:41:22 EST, Route to Pharmacy Electronically, [id number], [facility]/pharmacy #[id number] Start Date: 02/19/18 Stop Date: 04/20/18 [...] Maintenance, 02/19/18 10:40:31 EST,Route to Pharmacy Electronically, [id number], [facility]/pharmacy #[id number] Start Date: 02/19/18 Stop Date: 04/20/18 [...]
--- NOTE | 2023-09-27 00:12 | PC.NURSE ---
pt pass ambulation trial using walker, no current complaints. reports slight pain to left knee with ambulation however will use tylenol at home for pain . MD aware, getting discharge papers ready
[2023-09-27 00:20] VITALS: BP 151/59; PULSE 76; RESP 16; TEMP 36.7; O2SAT 94
== END 2023-09-27 00:26 | disposition home or self-care (01) ==
PROVIDERS: Emergency Provider Emergency Medicine
DX: S49.92XA Unspecified injury of left shoulder and upper arm, initial encounter (principal); S89.92XA Unspecified injury of left lower leg, initial encounter; R07.89 Other chest pain; M25.552 Pain in left hip; M79.605 Pain in left leg; M25.512 Pain in left shoulder; W01.0XXA Fall on same level from slipping, tripping and stumbling without subsequent striking against object, initial encounter; Y93.89 Activity, other specified; Y92.89 Other specified places as the place of occurrence of the external cause; Y99.8 Other external cause status
CPT/HCPCS: 71101; 73030; 73502; 73560; 81001; 99283; 99284

== ENCOUNTER 2024-03-29 23:06 | Emergency (ER) | payer OTHER, SELFPAY ==
--- NOTE | ~2024-03-29 | CT_ITS ---
CLINICAL HISTORY: Fall x2, head strike, R O fracture, bleed CT head without contrast Comparison: CT/SR - CT HEAD/BRAIN WO IV CON - 10/11/22 23:28 EDT Findings: No intra-axial mass, midline shift, hydrocephalus, or acute hemorrhage. Moderate cerebral atrophy and compensatory ventriculomegaly. Extensive low attenuation in the periventricular white matter consistent with chronic small-vessel ischemic gliosis. The visualized paranasal sinuses and mastoid air cells are normal. The orbits are within normal limits. There is no acute fracture. IMPRESSION: 1. No acute intracranial findings. This document has been electronically signed by: Poncho Anaya MD on 03/30/2024 01:11:12
--- NOTE | ~2024-03-29 | XR_ITS ---
CLINICAL HISTORY: Fall, left knee pain, R O fracture 4 view left knee Comparison: CR/MI/SR - XR KNEE LT 2V - 09/26/23 23:03 EDT Findings: Bones intact. No dislocations. No acute fracture deformity identified. 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 No joint effusion. No radiopaque foreign body. IMPRESSION: 1. No acute findings. This document has been electronically signed by: Poncho Anaya MD on 03/30/2024 01:01:44
--- NOTE | ~2024-03-29 | XR_ITS ---
CLINICAL HISTORY: Fever, weakness, rule out pneumonia 1 view chest x-ray Comparison: None Findings: Lung volumes. No effusion or pneumothorax. Normal size heart. No acute fracture. IMPRESSION: 1. No acute findings. This document has been electronically signed by: Poncho Anaya MD on 03/30/2024 01:03:28
[2024-03-29 23:14] VITALS: BP 144/69; PULSE 92; RESP 14; TEMP 38.1; O2SAT 93; BMI 25.2
--- NOTE | 2024-03-29 23:20 | PC.NURSE ---
aerosol line operator and MD Tapia made aware of pt sx/vitals. taken to [id number] per admission discharge rn. report given to jonatan lester.
--- NOTE | 2024-03-29 23:49 | ED.WEAKNESS ---
HPI - Weakness General Chief complaint: Fall Stated complaint: fell yesterday 2 x, cough Time Seen by Provider: 03/29/24 23:35 Source: patient and family Mode of arrival: ambulatory Limitations: language barrier (Patient's speaks Faroese only, daughter speaks Kyrgyz and Faroese, [facility] [place] [employer] used) History of Present Illness ED Provider: Dr. Todd Tapia HPI Narrative: 83-year-old female with a history of diabetes mellitus, hypertension, hyperthyroidism, arthritis, osteoporosis who presents emergency department for evaluation of weakness x2 days, 2 falls yesterday with a head strike in injury to her left knee, urinary incontinence, and poor oral intake. Patient lives at home with her daughter. The daughter states that multiple family members have been ill with flu-like illness. The patient is incontinent in his unusual for this patient. Related Data Previous Rx's ?Medication ?Instructions ?Recorded cefuroxime axetil 500 mg tablet 500 mg PO BID #13 tabs 10/12/22 acetaminophen 500 mg tablet 500 mg PO QID PRN fever or pain 09/27/23 #20 tabs ibuprofen 600 mg tablet 600 mg PO Q8H PRN fever or pain 09/27/23 #20 tabs cefuroxime axetil 250 mg tablet 250 mg PO Q12H 5 days #10 tabs 03/30/24 oseltamivir 75 mg capsule (Tamiflu) 75 mg PO Q12H 5 days #10 caps 03/30/24 Allergies Allergy/AdvReac Type Severity Reaction Status Date / Time Penicillins Allergy Rash Verified 03/29/24 23:18 shrimp Allergy Rash Verified 03/29/24 23:18 Review of Systems Review of Systems: Yes all other systems are reviewed and are negative [facility] Past Medical History [facility] Narrative: Social history: The patient lives at home with her daughter and her family. Patient denies tobacco and alcohol use. Medical History (Updated 03/30/24 @ 01:32 by Todd Tapia MD) Multiple falls Diabetes Social History Social History Alcohol intake: unknown Smoked in Last 30 Days: No Use of substances other than those prescribed or required for medical reasons: No Advance Directives: No Advance Directives Information Provided: Yes Do you have a plan to hurt others: No Plan Physical Exam Vital Signs: Vital Signs: Last Vital Signs Temp 99.0 F 03/30/24 00:42 Pulse 76 03/30/24 00:42 Resp 18 03/30/24 00:42 BP 158/60 H 03/30/24 00:42 Pulse Ox 95 03/30/24 00:42 O2 Del Method Room Air 03/30/24 00:42 BMI result Body Mass Index 25.2 Vital signs revealed an elevated temperature of 100.5 degrees F Exam: General: Awake, alert in no distress Head: Normocephalic, tenderness palpation of the patient's also put with no obvious hematoma or abrasion noted. EENT: PERRL, Lids normal, sclera normal, conjunctiva normal, nose normal , ears normal, throat without erythema or exudates Neck: Supple, no adenopathy Lung: breath sounds symmetric, no wheezing, rales or rhonchi Chest: symmetric movement, nontender Heart: regular rate and rhythm, normal S1, S2 no murmurs or rubs Abdomen: soft, mild to moderate suprapubic tenderness, nondistended, normal bowel sounds Back: no vertebral tenderness, no CVAT Extremities: no deformities, patient does have ecchymosis over her left knee with pain with flexion and extension of the knee Neuro: Awake, alert, oriented to person, normal speech, cranial nerves intact Psych: Pleasant, cooperative Medications Administered Discontinued Medications Generic Name Dose Route Start Last Admin Trade Name Freq PRN Reason Stop Dose Admin Acetaminophen 975 mg 03/29/24 23:39 03/29/24 23:58 Acetaminophen 325 Mg Tablet PO 03/29/24 23:40 975 mg ONCE STA Administration Ceftriaxone Sodium 1 gm 03/29/24 23:37 03/29/24 23:57 Ceftriaxone Sodium 1 Gm Vial IVPUSH 03/29/24 23:38 1 gm ONCE ONE Administration Sodium Chloride 1,000 mls @ 999 mls/hr 03/29/24 23:48 03/29/24 23:57 Ns IV 03/30/24 00:48 999 mls/hr .Q1H1M STA Administration Medical Decision Making Medical Decision Making MDM Narrative: 83-year-old female with a history of diabetes mellitus, hypertension, hyperthyroidism, arthritis, osteoporosis who presents emergency department for evaluation of weakness x2 days, 2 falls yesterday with a head strike in injury to her left knee, urinary incontinence, and poor oral intake. Patient lives at home with her daughter. The daughter states that multiple family members have been ill with flu-like illness. Vital signs revealed a fever of 100.5 degrees F otherwise unremarkable. Abdominal exam did reveal occipital scalp tenderness, suprapubic tenderness and ecchymosis with pain with movement left knee. 23:54 Differential diagnosis: ?Includes but is not limited to skull fracture, intracranial bleed, urinary tract infection, pneumonia, been 19, influenza, RSV, left knee contusion, left knee fracture, anemia, electrolyte abnormalities Course: 23:54 At this time I am concerned the patient may have a urinary tract infection as the cause of her symptoms, I did order a laboratory evaluation to include cultures, lactic acid, straight cath urine. Patient will be treated with normal saline IV x1 L, ceftriaxone 1 g IV and Tylenol 975 mg orally. 01:23 My independent interpretation patient's laboratory evaluation is as follows: CBC was normal. Glucose elevated 180. BUN elevated 22 with a normal creatinine of 0.8. LFTs were normal. Patient was urinalysis/microscopic was a straight cath specimen. Doppler revealed 0-2 RBCs, 0-5 WBCs with 4+ bacteria. COVID-19, RSV were negative. Influenza was positive for influenza A. CT scan of the brain was unremarkable. Chest x-ray and left knee x-ray revealed no acute abnormalities. Given the above findings, I believe that the patient's symptoms are most likely caused by acute influenza however she was incontinent of urine which is unusual for her she does have 4+ bacteria in her urine. On a previous specimen from 10/11/2022, her urine culture was positive for E coli when she had 4+ bacteria. He was discuss these findings with the patient's family and treatment options. Patient will be started on Tamiflu 75 mg q.12 hours x5 days and she was given her 1st dose here in the emergency department. Patient will also be treated empirically for a urinary tract infection with cefuroxime 250 mg q.12 hours x5 days. Patient was given her 1st dose of Tamiflu here in the emergency department and she was treated with ceftriaxone for possible urinary tract infection. Family he was given printed and verbal instructions the patient was discharged home. Admission/Observation Consideration of admission/observation: Escalation of care including admission/observation considered Lab Data MDM Lab Attestation statement: I reviewed the patient's lab results. 03/29/24 23:57 03/29/24 23:57 Labs: Lab Results 03/29/24 03/30/24 Range/Units 23:57 00:30 WBC 10.0 (4.8-10.8) X10*3/uL RBC 5.39 (4.20-5.50) X10*6/uL Hgb 13.5 (12.0-16.0) g/dl Hct 42.5 (37.0-47.0) % MCV 78.8 L (80.0-98.0) fL MCH 25.0 L (27.0-33.0) pg MCHC 31.8 (31.0-35.0) g/dl RDW 16.3 H (11.0-16.0) % Plt Count 245 (160-400) X10*3/uL MPV 10.3 (9.4-12.3) fL Immature Gran % (Auto) 0.6 H (0.0-0.4) % Neut % (Auto) 77.5 H (45-73) % Lymph % (Auto) 10.4 L (20-40) % [place] % (Auto) 10.6 (2-11) % Eos % (Auto) 0.2 (0-4) % Baso % (Auto) 0.7 (0-2) % Lymph # (Auto) 1.0 L (1.2-4.9) X10*3/uL [place] # (Auto) 1.1 (0.1-1.2) X10*3/uL Eos # (Auto) 0.0 (0.0-0.4) X10*3/uL Baso # (Auto) 0.1 (0.0-0.2) X10*3/uL Abs Immat Gran (auto) 0.06 H (0.00-0.03) X10*3/uL Absolute Neuts (auto) 7.8 (2.0-8.3) x10*3/uL Absolute Nucleated RBC 0.000 (0.0-0.012) X10*3/uL Nucleated RBC % (auto) 0.0 (0.0-0.2) /100WBC APTT 29.7 (26.0-36.8) SEC Sodium 138 (135-145) mmol/L Potassium 3.6 (3.3-5.1) mmol/L Chloride 102 (96-108) mmol/L Carbon Dioxide 25 (22-29) mmol/L Anion Gap 15 (12-20) BUN 22 H (9-16) mg/dL Creatinine 0.80 (0.5-1.4) mg/dL Estim Creat Clear Calc 40.1 Estimated GFR > 60 Random Glucose 180 H (60-115) mg/dL Lactic Acid 1.3 (0.5-2.0) mmol/L Calcium 8.7 D (8.4-10.2) mg/dL Total Bilirubin 0.2 (0.0-1.0) mg/dL Direct Bilirubin < 0.2 (0.0-0.5) mg/dL AST 25 (5-31) U/L ALT 13 (0-31) U/L Alkaline Phosphatase 89 (39-117) U/L Total Protein 7.5 (6.5-8.0) g/dL Albumin 3.8 (3.5-5.0) g/dL Urine Color Yellow Urine Appearance Clear Urine pH 5.5 (5.0-9.0) Ur Specific [place] >= 1.030 H (1.005-1.025) Urine Protein 30 (1+) H (Neg-Trace) mg/dL Urine Glucose (UA) >=1000 H (Negative) mg/dL Urine Ketones Negative (Negative) mg/dL Urine Blood Negative (Negative) Urine Nitrite Negative (Negative) Ur Leukocyte Esterase Negative (Negative) Urine RBC 0-2 (0-2) /HPF Urine WBC 0-5 (0-5) /HPF Ur Squamous Epith Cells 0-2 (0-2) /HPF Urine Bacteria 4+ (None Seen) Hyaline Casts 0-2 (0-2) /LPF Influenza Type A (PCR) POSITIVE A (Negative) Influenza Type B (PCR) NEGATIVE (Negative) RSV RNA Qual (PCR) NEGATIVE (Negative) SARS-CoV-2 RNA (RT-PCR) NEGATIVE (Negative) Independent Interpretation I performed an independent interpretation of an: Plain X-Ray Radiology Impression Discussion of test interpretation with radiology: I have reviewed the radiologist's reading. Radiologist Impression: 1 view chest x-ray Comparison: None Findings: Lung volumes. No effusion or pneumothorax. Normal size heart. No acute fracture. IMPRESSION: 1. No acute findings. This document has been electronically signed by: Poncho Anaya MD on 03/30/2024 01:03:28 4 view left knee Comparison: CR/KY/SR - XR KNEE LT 2V - 09/26/23 23:03 EDT Findings: Bones intact. No dislocations. No acute fracture deformity identified. 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 No joint effusion. No radiopaque foreign body. IMPRESSION: 1. No acute findings. This document has been electronically signed by: Poncho Anaya MD on 03/30/2024 01:01:44 CT head without contrast Comparison: CT/SR - CT HEAD/BRAIN WO IV CON - 10/11/22 23:28 EDT Findings: No intra-axial mass, midline shift, hydrocephalus, or acute hemorrhage. Moderate cerebral atrophy and compensatory ventriculomegaly. Extensive low attenuation in the periventricular white matter consistent with chronic small-vessel ischemic gliosis. The visualized paranasal sinuses and mastoid air cells are normal. The orbits are within normal limits. There is no acute fracture. IMPRESSION: 1. No acute intracranial findings. This document has been electronically signed by: Poncho Anaya MD on 03/30/2024 01:11:12 Independent Historian Clinical information obtained from an independent historian. History obtained from or confirmed by: Other (Daughters) Prescription Management I considered prescription management with: Antiviral (Tamiflu) and Antibiotic (Cefuroxime) Chronic Conditions Patient?s care impacted by: Diabetes Discharge Plan Discharge Clinical Impression: Influenza A, Multiple falls, Urinary tract infection, Weakness, Bladder incontinence Patient Disposition: Home, Self-Care Instructions: Urinary Tract Infection in Women (ED), Influenza (ED) Additional Instructions: The CT scan of your brain revealed no bleeding in the brain or skull fracture/broken bones. Chest x-ray revealed no evidence of pneumonia. Left knee x-ray revealed no broken bones/fractures. Your blood work was unremarkable. Your urine test did reveal a significant amount of bacteria therefore I am going to treat you for possible urinary tract infection with cefuroxime 250 mg pills, 1 pill every 12 hours for 5 days. You can take the next dose on Sunday morning. Your COVID-19 and RSV tests were negative. Your influenza test was positive for influenza A. I am treating you for influenza with Tamiflu 75 mg, 1 pill every 12 hours. You can take your next dose this evening. Take Tylenol (acetaminophen) 500 mg pills, 2 pills every 6 hours as needed for pain or fever. Increase your fluid intake to prevent dehydration. For the next 24 hours, stay on a MESSI diet (bananas, rice, applesauce, tea and toast). Follow-up with your doctor in 2 days. Please return to the emergency department if your symptoms get worse or if you develop any symptoms that are concerning to you. Prescriptions: New cefuroxime axetil 250 mg tablet 250 mg PO Q12H 5 Days Qty: 10 0RF oseltamivir [Tamiflu] 75 mg capsule 75 mg PO Q12H 5 Days Qty: 10 0RF No Action cefuroxime axetil 500 mg tablet 500 mg PO BID Qty: 13 0RF ibuprofen 600 mg tablet 600 mg PO Q8H PRN (Reason: fever or pain) Qty: 20 0RF acetaminophen 500 mg tablet 500 mg PO QID PRN (Reason: fever or pain) Qty: 20 0RF Print Language: Faroese
[2024-03-29] MEDS: cefTRIAXone sodium 1 GM VIAL IVPUSH (23:57)
[2024-03-29] MEDS: 0.9 % Sodium Chloride 1,000 ML 999 ML IV (23:57)
[2024-03-29] MEDS: Acetaminophen 325 MG TABLET 975 MG PO (23:58)
[2024-03-30 00:06] LABS: MANUAL DIFF FLAG NO
[2024-03-30 00:09] LABS: Basophils Absolute Auto 0.1 X10*3/uL (0.0-0.2); Basophils Percent Auto 0.7 % (0-2); Eosinophils Percent Auto 0.2 % (0-4); Hematocrit 42.5 % (37.0-47.0); Hemoglobin 13.5 g/dl (12.0-16.0); Imm Gran Abs Auto 0.06 X10*3/uL (0.00-0.03); Imm Gran Pct Auto 0.6 % (0.0-0.4); Lymphocytes Percent Auto 10.4 % (20-40); Mean Corpuscular HGB Conc 31.8 g/dl (31.0-35.0); Mean Corpuscular Volume 78.8 fL (80.0-98.0); Mean Platelet Volume 10.3 fL (9.4-12.3); Monocytes Absolute Auto 1.1 X10*3/uL (0.1-1.2); Monocytes Percent Auto 10.6 % (2-11); Neutrophils Absolute Auto 7.8 x10*3/uL (2.0-8.3); Neutrophils Percent Auto 77.5 % (45-73); Platelet Count 245 X10*3/uL (160-400); Red Blood Count 5.39 X10*6/uL (4.20-5.50); Red Cell Distribution Width 16.3 % (11.0-16.0)
[2024-03-30 00:18] LABS: Partial Thromboplastin Time 29.7 SEC (26.0-36.8)
[2024-03-30 00:25] LABS: Alanine Aminotransferase 13 U/L (0-31); Albumin Level 3.8 g/dL (3.5-5.0); Alkaline Phosphatase 89 U/L (39-117); Anion Gap 15 (12-20); Aspartate Amino Transferase 25 U/L (5-31); Bilirubin Direct < 0.2 mg/dL (0.0-0.5); Bilirubin Total 0.2 mg/dL (0.0-1.0); Blood Urea Nitrogen 22 mg/dL (9-16); Calcium 8.7 mg/dL (8.4-10.2); Carbon Dioxide 25 mmol/L (22-29); Chloride 102 mmol/L (96-108); Creatinine Clr Calc Pharmacy 40.1; Estimated Glomerular Filt Rate > 60; Glucose Random 180 mg/dL (60-115); Lactic Acid 1.3 mmol/L (0.5-2.0); Potassium 3.6 mmol/L (3.3-5.1); Sodium 138 mmol/L (135-145); Total Protein 7.5 g/dL (6.5-8.0)
[2024-03-30 00:42] VITALS: BP 158/60; PULSE 76; RESP 18; TEMP 37.2; O2SAT 95
[2024-03-30 00:47] LABS: Influenza A PCR POSITIVE (Negative); Influenza B PCR NEGATIVE (Negative); Resp Syncy Virus RNA Qual PCR NEGATIVE (Negative); SARS COV2 PCR INHOUSE NEGATIVE (Negative)
[2024-03-30 00:54] LABS: Appearance Urine Clear; Color Urine Yellow; Glucose Urine UA >=1000 mg/dL (Negative); Leukocyte Esterase Urine Negative (Negative); Nitrite Urine Negative (Negative); PH 5.5 (5.0-9.0); Specific Gravity - Urine >= 1.030 (1.005-1.025); UMIC TRIGGER UACC YES; Urine Blood Negative (Negative); Urine Ketones Negative (Negative); Urine Protein 30 (1+) mg/dL (Neg-Trace)
[2024-03-30 01:00] LABS: Bacteria Urine 4+ (None Seen); Hyaline Casts Urine 0-2 /LPF (0-2); RBC Urine 0-2 /HPF (0-2); Squamous Epithelial Cell Urine 0-2 /HPF (0-2); UACC Culture Trigger NO; WBC Urine 0-5 /HPF (0-5)
[2024-03-30 01:19] VITALS: BP 157/54; PULSE 70; RESP 16; TEMP 37.2; O2SAT 95
[2024-03-30 01:47] VITALS: BP 143/55; PULSE 71; RESP 18; O2SAT 98
[2024-03-30] MEDS: Oseltamivir Phosphate 75 MG CAPSULE PO (01:53)
[2024-03-30 02:11] VITALS: BP 143/55; PULSE 71; RESP 18; TEMP 37.2; O2SAT 98
== END 2024-03-30 02:33 | disposition home or self-care (01) ==
PROVIDERS: Emergency Provider Emergency Medicine Emergency Medical Services
DX: S89.91XA Unspecified injury of right lower leg, initial encounter (principal); S09.90XA Unspecified injury of head, initial encounter; S29.9XXA Unspecified injury of thorax, initial encounter; N39.0 Urinary tract infection, site not specified; R07.89 Other chest pain; R32 Unspecified urinary incontinence; R11.2 Nausea with vomiting, unspecified; M25.562 Pain in left knee; R51.9 Headache, unspecified; J10.1 Influenza due to other identified influenza virus with other respiratory manifestations; W19.XXXA Unspecified fall, initial encounter; Y93.9 Activity, unspecified; Y92.9 Unspecified place or not applicable; Y99.8 Other external cause status; Z79.899 Other long term (current) drug therapy; Z03.818 Encounter for observation for suspected exposure to other biological agents ruled out
CPT/HCPCS: 0241U; 36415; 70450; 71045; 73564; 80048; 80076; 81001; 83605; 85025; 85730; 87040; 87086; 96361; 96374; 99284; J0696

== ENCOUNTER → 2024-03-30 | Outpatient (BNV) | payer OTHER, SELFPAY | PROVIDERS: Emergency Provider Emergency Medicine Emergency Medical Services; Visit Provider Radiology Diagnostic Radiology | DX: S09.90XA Unspecified injury of head, initial encounter (principal); M25.562 Pain in left knee; W19.XXXA Unspecified fall, initial encounter; R50.9 Fever, unspecified; R53.1 Weakness | CPT/HCPCS: 70450; 71045; 73564 ==

== ENCOUNTER 2024-10-18 12:07 | Emergency (ER) | payer OTHER, SELFPAY ==
--- NOTE | ~2024-10-18 | CT_ITS ---
CLINICAL HISTORY: weakness, diff walking, slumping to right CT head without contrast Comparison: CT/SR - CT HEAD/BRAIN WO IV CON - 03/30/24 00:13 EST Findings: Involutional change and nonspecific white matter hypodensity. No intracranial mass, midline shift, hydrocephalus, or acute hemorrhage. Orbits, paranasal sinuses, and mastoid air cells are unremarkable. No skull fracture Impression: 1. No acute findings This document has been electronically signed by: Lucretia Nice MD on 10/18/2024 14:25:59
--- NOTE | ~2024-10-18 | XR_ITS ---
CLINICAL HISTORY: fall, 3 weeks ago Four view left knee Comparison: CR - XR KNEE LT 4V - 03/30/24 00:36 EST Findings: No acute fracture. No dislocation. There is osteopenia. 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 No joint effusion. No radiopaque foreign body. IMPRESSION: 1. No acute findings. This document has been electronically signed by: Lucretia Nice MD on 10/18/2024 15:13:21
--- NOTE | ~2024-10-18 | XR_ITS ---
CLINICAL HISTORY: dyspnea on exertion 2 view chest x-ray Comparison: CR - XR CHEST 1V - 03/30/24 00:40 EST Findings: The lungs are clear. Heart size is normal. 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 No acute fracture. IMPRESSION: 1. No acute findings. This document has been electronically signed by: Lucretia Nice MD on 10/18/2024 15:16:35
--- NOTE | ~2024-10-18 | CT_ITS ---
CLINICAL HISTORY: diarrhea, tenderness, WBC 16 CT abdomen and pelvis with contrast Comparison: None provided Findings: The lung bases are clear. There is dilatation of the intra and extrahepatic biliary tree likely on the basis of prior cholecystectomy. Otherwise unremarkable liver. There are several calcified granulomas within the spleen. There is severe pancreatic volume loss. The kidneys and adrenal glands are unremarkable. Dilatation of the biliary tree most likely secondary to prior cholecystectomy. There is severe colonic diverticulosis without diverticulitis. There is apparent thickening of the wall of the mid transverse colon extending over 3 cm of its length (series 6 images 9-13). There is a large ventral hernia containing fat within the upper abdomen. There is a small umbilical hernia containing fat. There are small bilateral femoral hernias containing fat. Status post hysterectomy. Unremarkable urinary bladder. Normal appendix. The bones are intact. IMPRESSION: 1. Localized thickening of the wall of a short segment of the transverse colon. This may be secondary to spasm or physiologic underdistention. Neoplasm is also in the differential however. 2. There is colonic diverticulosis without diverticulitis. 3. Multiple hernias containing fat including a ventral hernia, umbilical hernia and bilateral femoral hernias. This document has been electronically signed by: Lucretia Nice MD on 10/18/2024 17:23:28
--- NOTE | ~2024-10-18 | XR_ITS ---
CLINICAL HISTORY: pain, fall 3 weeks ago 3 view, pelvis and left hip Comparison: CR/FL/SR - XR HIP 1 VIEW LEFT WITH PELVIS - 09/26/23 22:59 EDT Findings: The bones are intact. No significant arthritic change. The soft tissues are unremarkable. IMPRESSION: No acute findings. This document has been electronically signed by: Lucretia Nice MD on 10/18/2024 15:13:34
[2024-10-18 12:11] VITALS: BP 150/70; PULSE 80; O2SAT 96
[2024-10-18 12:16] VITALS: BP 155/75; PULSE 78; RESP 14; TEMP 36.8; O2SAT 98; BMI 25.7
--- NOTE | 2024-10-18 12:22 | ED.GENADULT ---
HPI - General Adult General Chief complaint: Weakness Stated complaint: LLE PAIN,WEAK,DIARRHEA SINCE T-1 PER EMS Time Seen by Provider: 10/18/24 12:22 History of Present Illness ED Provider: Sparkle CAMEJO narrative: The patient is an 84-year-old woman. She normally lives with 1 of her daughters but has been staying with a different daughter recently because the daughter with whom she usually lives had surgery. Apparently the patient has been seeming to do poorly over the last few months. Both of her daughters are here now. They say that she has seemed weaker over the last few months. They say that she has had a tendency to slump over to the right side. She apparently has a minor fall 3 weeks ago and seemed to injure her left knee. Her left knee has been problematic for her for some time. Last night she had some episodes of diarrhea. This morning the patient seemed too weak to stand and so the daughter called 911 and she was brought to the hospital. No fever, sweats, chills. No head injury. No chest pain. The patient has a history of chronic problems with the left knee. She sees a certified tumor registrar and sometimes gets injections in her left knee. Related Data Home Medications ?Medication ?Instructions ?Recorded ?Confirmed acetaminophen 650 mg 650 mg PO Q8H PRN pain 10/18/24 10/18/24 tablet,extended release amlodipine 10 mg tablet 10 mg PO DAILY 10/18/24 10/18/24 diclofenac sodium 1 % topical gel 2 g topical BID 10/18/24 10/18/24 docusate sodium 100 mg capsule 100 mg PO BID 10/18/24 10/18/24 empagliflozin 25 mg tablet 25 mg PO QAM 10/18/24 10/18/24 (Jardiance) hydrochlorothiazide 25 mg tablet 25 mg PO DAILY 10/18/24 10/18/24 insulin degludec 100 unit/mL (3 30 unit subcut BEDTIME 10/18/24 10/18/24 mL) subcutaneous pen (Tresiba FlexTouch U-100 insulin) insulin lispro 100 unit/mL 10 unit subcut DAILY 10/18/24 10/18/24 subcutaneous pen levothyroxine 75 mcg tablet 75 mcg PO DAILY@0600 10/18/24 10/19/24 losartan 50 mg tablet 50 mg PO DAILY 10/18/24 10/18/24 omeprazole 40 mg capsule,delayed 40 mg PO QAM 10/18/24 10/18/24 release sitagliptin phosphate 50 mg tablet 50 mg PO DAILY 10/18/24 10/18/24 (Januvia) tramadol 50 mg tablet 50 mg PO TID 10/18/24 10/18/24 Previous Rx's ?Medication ?Instructions ?Recorded ibuprofen 600 mg tablet 600 mg PO Q8H PRN fever or pain 09/27/23 #20 tabs Allergies Allergy/AdvReac Type Severity Reaction Status Date / Time Penicillins Allergy Rash Verified 10/18/24 12:23 shrimp Allergy Rash Verified 10/18/24 12:23 Review of Systems Review of Systems: Yes all other systems are reviewed and are negative FOR[facility]LY [facility] Past Medical History Medical History (Updated 10/22/24 @ 00:00 by Jamison White) Multiple falls Diabetes Social History Social History Alcohol intake: unknown Physical Exam ED Vital Signs: Vital Signs - 24 hr 10/21/24 13:19 10/21/24 15:44 10/21/24 17:38 Temperature 98.6 F 98.2 F 98.2 F Pulse Rate 82 94 94 Respiratory Rate 16 16 16 Blood Pressure 160/70 H 148/77 H 148/77 H Pulse Oximetry 95 95 95 Oxygen Delivery Method Room Air Room Air Room Air BMI result Body Mass Index 25.7 Const Other: The patient is an 84-year-old woman who looks chronically ill. She is awake and alert. She has a pleasant demeanor. She does not seem in obvious acute distress or seem obviously acutely ill. HENMT Other: Face is symmetrical. Mucous membranes moist Eyes Other: Pupils are round equal, conjunctivae are clear, extraocular movements intact Neck Other: The patient is moving her neck easily, no obvious JVD, neck is unremarkable Resp Other: The patient initially seemed to have some crackles at the bases, particularly in the left. However this seemed to improve with several deep breaths. No increased work of breathing. Cardio Other: The patient seemed to have a normal heart rate but seemed to have a somewhat irregular rhythm. GI Other: Initially I thought the patient has a soft and nontender abdomen. I examined her later and thought there was some left-sided tenderness. General: Yes no CVA tenderness Back/Spine/Pelvis Back: no CVA tenderness Skin Other: Skin is dry and unremarkable Neuro Other: The patient is awake and alert. She seems oriented and appropriate. Cranial nerves 2-12 are intact. She moves her arms normally. She moves the right leg well and normally. She seems to have some pain with movement of the left leg. Extrem Other: No calf swelling or tenderness. No pitting edema. She seems to have tenderness of the left knee. She also seems to have some generalized tenderness of the left thigh. Some mild discomfort with manipulation of the left hip but I can put the hip through a generally good range of motion. No deformity. Course Course Course Narrative: 10/20/24 14:00 patient remains on physician observation. Notified by nursing that no code status entered. Discussed code status with daughter, Cheryle, and patient with in-person deaf interpreter. Code status entered in computer and MOLST completed and signed. CM following for disposition. Reevaluation(s) Reevaluation #1: Time: 10:34 Date: 10/21/24 Provider: MASHA Butler Patient in physician observation for case management needs. No acute events reported overnight.? Nursing contacted me in regards to itchiness on back, daughter requesting Benadryl. There are no rashes, will try to treat with hydrating lotion and will continue to monitor. VS stable. Patient is pending placement at facility. We will continue to monitor. Time: 16:52 Date: 10/21/24 Provider: MASHA Butler Physician observation ended at 04:52PM. Patient will be discharged to [facility] in [place]. EMS set up for transport for 5:30PM this evening. Medications Administered Discontinued Medications Generic Name Dose Route Start Last Admin Trade Name Jose Eduardo PRN Reason Stop Dose Admin Amlodipine Besylate 10 mg 10/19/24 09:00 10/21/24 08:36 Amlodipine Besylate 10 Mg Tablet PO 10 mg DAILY DANIEL Administration Protocol Docusate Sodium 100 mg 10/18/24 21:00 10/21/24 08:38 Docusate Sodium 100 Mg Capsule PO Not Given BID DANIEL Empagliflozin 25 mg 10/19/24 09:00 10/21/24 08:35 Empagliflozin 25 Mg Tablet PO 25 mg DAILY DANIEL Administration Hydrochlorothiazide 25 mg 10/19/24 09:00 10/21/24 08:37 Hydrochlorothiazide 25 Mg Tablet PO 25 mg DAILY DANIEL Administration Protocol Acetaminophen 1,000 mg in 100 mls @ 400 mls/hr 10/18/24 15:01 10/18/24 15:44 Ofirmev IV 10/18/24 15:15 Infused ONCE ONE Infusion Insulin Glargine 21 unit 10/18/24 21:00 10/20/24 20:52 Insulin Glargine,Hum.Rec.Anlog 100 Unit/Ml 10 Ml Vial SUBCUT 21 unit BEDTIME DANIEL Administration Insulin Human Lispro 10 unit 10/19/24 09:00 10/21/24 08:30 Insulin Lispro 100 Unit/Ml 3 Ml Vial SUBCUT Not Given DAILY DANIEL Iohexol 100 ml 10/18/24 16:13 10/18/24 16:17 Iohexol 350 Mg/Ml 100 Ml Infus..Btl IV 10/18/24 16:14 85 ml ONCE ONE Administration Levothyroxine Sodium 75 mcg 10/19/24 06:00 10/21/24 06:26 Levothyroxine Sodium 75 Mcg Tablet PO 75 mcg DAILY@0600 DANIEL Administration Losartan Potassium 50 mg 10/19/24 09:00 10/21/24 08:37 Losartan Potassium 50 Mg Tablet PO 50 mg DAILY DANIEL Administration Protocol Omeprazole 40 mg 10/19/24 06:30 10/21/24 06:25 Omeprazole 40 Mg Capsule.Dr PO 40 mg DAILY@0630 DANIEL Administration Sitagliptin Phosphate 50 mg 10/19/24 09:00 10/21/24 08:35 Sitagliptin Phosphate 50 Mg Tablet PO 50 mg DAILY DANIEL Administration Tramadol HCl 50 mg 10/18/24 21:00 10/21/24 14:44 Tramadol Hcl 50 Mg Tablet PO 50 mg TID DANIEL Administration Trazodone HCl 50 mg 10/20/24 23:00 10/20/24 22:59 Trazodone Hcl 50 Mg Tablet PO 50 mg BEDTIME DANIEL Administration Medical Decision Making Medical Decision Making MDM Narrative: The patient is an 84-year-old woman who has been living at home. She recently has been staying with a different daughter than the daughter with whom she normally lives. Both daughters are here and feel that the patient has been getting weaker over the last several weeks. She apparently had a fall 3 weeks ago (the triage note says 2 nights ago but the daughters say this is not the case). It seems as though the patient had trouble walking today primarily because of left leg pain. I think this is a problem primarily at the left knee. She has had a right knee replacement. She has not had a left knee replacement. She sees a certified tumor registrar and sometimes gets injections in her left knee. Left knee x-ray today shows signs of arthritis but no acute findings, specifically no fracture and no effusion. I also obtained an x-ray of the left hip that looks unremarkable. I do not have a significant suspicion for an occult fracture of the left hip. In terms of her general [place] [address] She has not had a fever. She does not have a significantly elevated CRP however. Her CRP was only 1.01. Her chest x-ray shows no pneumonia. Her urinalysis is clean. She had some diarrhea and I thought that perhaps she had some left-sided abdominal tenderness so I also obtained a CT of the abdomen and pelvis. This shows no acute findings. Ultimately I felt that there was no significant infectious cause for the patient's elevated white count. The patient has been given some IV acetaminophen for pain. The patient was eager to go home. We therefore tried a trial of ambulation. The patient did very poorly with a trial of ambulation because of problems with the left leg. She did not seem to be able to bear weight on the left leg. Therefore despite the patient's desires to go home she ultimately acknowledged that she could not go home safely. I will place a consult for case management and physical therapy. Of note we also did a head CT which showed no acute findings. The patient will be placed in physician observation as of 18:00 on 10/18/2024 for evaluation by case management and physical therapy. I have ordered a meal for the patient. Lab Data 10/18/24 13:07 10/18/24 13:07 Labs: Lab Results 10/18/24 10/18/24 10/18/24 Range/Units 13:07 14:11 14:12 WBC 16.5 H (4.8-10.8) X10*3/uL RBC 4.71 (4.20-5.50) X10*6/uL Hgb 12.2 (12.0-16.0) g/dl Hct 38.8 (37.0-47.0) % MCV 82.4 (80.0-98.0) fL MCH 25.9 L (27.0-33.0) pg MCHC 31.4 (31.0-35.0) g/dl RDW 14.9 (11.0-16.0) % Plt Count 305 (160-400) X10*3/uL MPV 10.2 (9.4-12.3) fL Immature Gran % (Auto) 0.5 H (0.0-0.4) % Neut % (Auto) 75.1 H (45-73) % Lymph % (Auto) 13.7 L (20-40) % Perry % (Auto) 5.7 (2-11) % Eos % (Auto) 4.2 H (0-4) % Baso % (Auto) 0.8 (0-2) % Lymph # (Auto) 2.3 (1.2-4.9) X10*3/uL Perry # (Auto) 0.9 (0.1-1.2) X10*3/uL Eos # (Auto) 0.7 H (0.0-0.4) X10*3/uL Baso # (Auto) 0.1 (0.0-0.2) X10*3/uL Abs Immat Gran (auto) 0.09 H (0.00-0.03) X10*3/uL Absolute Neuts (auto) 12.4 H (2.0-8.3) x10*3/uL Absolute Nucleated RBC 0.000 (0.0-0.012) X10*3/uL Nucleated RBC % (auto) 0.0 (0.0-0.2) /100WBC PT 10.8 L (10.9-12.4) SEC INR 0.9 (0.9-1.1) Sodium 141 (135-145) mmol/L Potassium 3.6 (3.3-5.1) mmol/L Chloride 104 (96-108) mmol/L Carbon Dioxide 28 (22-29) mmol/L Anion Gap 13 (12-20) BUN 20 H (9-16) mg/dL Creatinine 0.72 (0.5-1.4) mg/dL Estim Creat Clear Calc 48.1 Estimated GFR > 60 POC Glucose (60-115) mg/dL Random Glucose 136 H (60-115) mg/dL Calcium 9.4 D (8.4-10.2) mg/dL Magnesium 2.1 (1.6-2.6) mg/dL Total Bilirubin 0.5 (0.0-1.0) mg/dL AST 22 (5-31) U/L ALT 11 (0-31) U/L Alkaline Phosphatase 97 (39-117) U/L Troponin I High Sens 9.8 D (<3.5-17.0) ng/L C-Reactive Protein 1.01 H (< or = 0.50) mg/dL Total Protein 6.9 (6.5-8.0) g/dL Albumin 3.8 (3.5-5.0) g/dL Urine Color Yellow Urine Appearance Clear Urine pH 6.5 (5.0-9.0) Ur Specific [place] 1.025 (1.005-1.025) Urine Protein Negative (Neg-Trace) mg/dL Urine Glucose (UA) >=1000 H (Negative) mg/dL Urine Ketones Negative (Negative) mg/dL Urine Blood Negative (Negative) Urine Nitrite Negative (Negative) Ur Leukocyte Esterase Negative (Negative) Urine RBC 0-2 (0-2) /HPF Urine WBC 0-5 (0-5) /HPF Ur Squamous Epith Cells 0-2 (0-2) /HPF Urine Bacteria None Seen (None Seen) Hyaline Casts 0-2 (0-2) /LPF COVID-19 (CARMELA) Cancelled Negative COVID-19 Clin Com Cancelled See Note Influenza Type A (BECCA) Cancelled Negative Influenza Type B (BECCA) Cancelled Negative Influenza A & B Note Cancelled See Note 10/18/24 10/19/24 10/19/24 Range/Units 21:00 07:50 13:24 WBC (4.8-10.8) X10*3/uL RBC (4.20-5.50) X10*6/uL Hgb (12.0-16.0) g/dl Hct (37.0-47.0) % MCV (80.0-98.0) fL MCH (27.0-33.0) pg MCHC (31.0-35.0) g/dl RDW (11.0-16.0) % Plt Count (160-400) X10*3/uL MPV (9.4-12.3) fL Immature Gran % (Auto) (0.0-0.4) % Neut % (Auto) (45-73) % Lymph % (Auto) (20-40) % Perry % (Auto) (2-11) % Eos % (Auto) (0-4) % Baso % (Auto) (0-2) % Lymph # (Auto) (1.2-4.9) X10*3/uL Perry # (Auto) (0.1-1.2) X10*3/uL Eos # (Auto) (0.0-0.4) X10*3/uL Baso # (Auto) (0.0-0.2) X10*3/uL Abs Immat Gran (auto) (0.00-0.03) X10*3/uL Absolute Neuts (auto) (2.0-8.3) x10*3/uL Absolute Nucleated RBC (0.0-0.012) X10*3/uL Nucleated RBC % (auto) (0.0-0.2) /100WBC PT (10.9-12.4) SEC INR (0.9-1.1) Sodium (135-145) mmol/L Potassium (3.3-5.1) mmol/L Chloride (96-108) mmol/L Carbon Dioxide (22-29) mmol/L Anion Gap (12-20) BUN (9-16) mg/dL Creatinine (0.5-1.4) mg/dL Estim Creat Clear Calc Estimated GFR POC Glucose 174 H 81 141 H (60-115) mg/dL Random Glucose (60-115) mg/dL Calcium (8.4-10.2) mg/dL Magnesium (1.6-2.6) mg/dL Total Bilirubin (0.0-1.0) mg/dL AST (5-31) U/L ALT (0-31) U/L Alkaline Phosphatase (39-117) U/L Troponin I High Sens (<3.5-17.0) ng/L C-Reactive Protein (< or = 0.50) mg/dL Total Protein (6.5-8.0) g/dL Albumin (3.5-5.0) g/dL Urine Color Urine Appearance Urine pH (5.0-9.0) Ur Specific [place] (1.005-1.025) Urine Protein (Neg-Trace) mg/dL Urine Glucose (UA) (Negative) mg/dL Urine Ketones (Negative) mg/dL Urine Blood (Negative) Urine Nitrite (Negative) Ur Leukocyte Esterase (Negative) Urine RBC (0-2) /HPF Urine WBC (0-5) /HPF Ur Squamous Epith Cells (0-2) /HPF Urine Bacteria (None Seen) Hyaline Casts (0-2) /LPF COVID-19 (CARMELA) COVID-19 Clin Com Influenza Type A (BECCA) Influenza Type B (BECCA) Influenza A & B Note 10/19/24 10/19/24 10/20/24 Range/Units 18:05 20:35 07:45 WBC (4.8-10.8) X10*3/uL RBC (4.20-5.50) X10*6/uL Hgb (12.0-16.0) g/dl Hct (37.0-47.0) % MCV (80.0-98.0) fL MCH (27.0-33.0) pg MCHC (31.0-35.0) g/dl RDW (11.0-16.0) % Plt Count (160-400) X10*3/uL MPV (9.4-12.3) fL Immature Gran % (Auto) (0.0-0.4) % Neut % (Auto) (45-73) % Lymph % (Auto) (20-40) % Perry % (Auto) (2-11) % Eos % (Auto) (0-4) % Baso % (Auto) (0-2) % Lymph # (Auto) (1.2-4.9) X10*3/uL Perry # (Auto) (0.1-1.2) X10*3/uL Eos # (Auto) (0.0-0.4) X10*3/uL Baso # (Auto) (0.0-0.2) X10*3/uL Abs Immat Gran (auto) (0.00-0.03) X10*3/uL Absolute Neuts (auto) (2.0-8.3) x10*3/uL Absolute Nucleated RBC (0.0-0.012) X10*3/uL Nucleated RBC % (auto) (0.0-0.2) /100WBC PT (10.9-12.4) SEC INR (0.9-1.1) Sodium (135-145) mmol/L Potassium (3.3-5.1) mmol/L Chloride (96-108) mmol/L Carbon Dioxide (22-29) mmol/L Anion Gap (12-20) BUN (9-16) mg/dL Creatinine (0.5-1.4) mg/dL Estim Creat Clear Calc Estimated GFR POC Glucose 152 H 160 H 75 (60-115) mg/dL Random Glucose (60-115) mg/dL Calcium (8.4-10.2) mg/dL Magnesium (1.6-2.6) mg/dL Total Bilirubin (0.0-1.0) mg/dL AST (5-31) U/L ALT (0-31) U/L Alkaline Phosphatase (39-117) U/L Troponin I High Sens (<3.5-17.0) ng/L C-Reactive Protein (< or = 0.50) mg/dL Total Protein (6.5-8.0) g/dL Albumin (3.5-5.0) g/dL Urine Color Urine Appearance Urine pH (5.0-9.0) Ur Specific [place] (1.005-1.025) Urine Protein (Neg-Trace) mg/dL Urine Glucose (UA) (Negative) mg/dL Urine Ketones (Negative) mg/dL Urine Blood (Negative) Urine Nitrite (Negative) Ur Leukocyte Esterase (Negative) Urine RBC (0-2) /HPF Urine WBC (0-5) /HPF Ur Squamous Epith Cells (0-2) /HPF Urine Bacteria (None Seen) Hyaline Casts (0-2) /LPF COVID-19 (CARMELA) COVID-19 Clin Com Influenza Type A (BECCA) Influenza Type B (BECCA) Influenza A & B Note 10/20/24 10/20/24 10/21/24 Range/Units 16:01 20:50 07:16 WBC (4.8-10.8) X10*3/uL RBC (4.20-5.50) X10*6/uL Hgb (12.0-16.0) g/dl Hct (37.0-47.0) % MCV (80.0-98.0) fL MCH (27.0-33.0) pg MCHC (31.0-35.0) g/dl RDW (11.0-16.0) % Plt Count (160-400) X10*3/uL MPV (9.4-12.3) fL Immature Gran % (Auto) (0.0-0.4) % Neut % (Auto) (45-73) % Lymph % (Auto) (20-40) % Perry % (Auto) (2-11) % Eos % (Auto) (0-4) % Baso % (Auto) (0-2) % Lymph # (Auto) (1.2-4.9) X10*3/uL Perry # (Auto) (0.1-1.2) X10*3/uL Eos # (Auto) (0.0-0.4) X10*3/uL Baso # (Auto) (0.0-0.2) X10*3/uL Abs Immat Gran (auto) (0.00-0.03) X10*3/uL Absolute Neuts (auto) (2.0-8.3) x10*3/uL Absolute Nucleated RBC (0.0-0.012) X10*3/uL Nucleated RBC % (auto) (0.0-0.2) /100WBC PT (10.9-12.4) SEC INR (0.9-1.1) Sodium (135-145) mmol/L Potassium (3.3-5.1) mmol/L Chloride (96-108) mmol/L Carbon Dioxide (22-29) mmol/L Anion Gap (12-20) BUN (9-16) mg/dL Creatinine (0.5-1.4) mg/dL Estim Creat Clear Calc Estimated GFR POC Glucose 187 H 124 H 135 H (60-115) mg/dL Random Glucose (60-115) mg/dL Calcium (8.4-10.2) mg/dL Magnesium (1.6-2.6) mg/dL Total Bilirubin (0.0-1.0) mg/dL AST (5-31) U/L ALT (0-31) U/L Alkaline Phosphatase (39-117) U/L Troponin I High Sens (<3.5-17.0) ng/L C-Reactive Protein (< or = 0.50) mg/dL Total Protein (6.5-8.0) g/dL Albumin (3.5-5.0) g/dL Urine Color Urine Appearance Urine pH (5.0-9.0) Ur Specific [place] (1.005-1.025) Urine Protein (Neg-Trace) mg/dL Urine Glucose (UA) (Negative) mg/dL Urine Ketones (Negative) mg/dL Urine Blood (Negative) Urine Nitrite (Negative) Ur Leukocyte Esterase (Negative) Urine RBC (0-2) /HPF Urine WBC (0-5) /HPF Ur Squamous Epith Cells (0-2) /HPF Urine Bacteria (None Seen) Hyaline Casts (0-2) /LPF COVID-19 (CARMELA) COVID-19 Clin Com Influenza Type A (BECCA) Influenza Type B (BECCA) Influenza A & B Note 10/21/24 10/21/24 Range/Units 11:38 15:58 WBC (4.8-10.8) X10*3/uL RBC (4.20-5.50) X10*6/uL Hgb (12.0-16.0) g/dl Hct (37.0-47.0) % MCV (80.0-98.0) fL MCH (27.0-33.0) pg MCHC (31.0-35.0) g/dl RDW (11.0-16.0) % Plt Count (160-400) X10*3/uL MPV (9.4-12.3) fL Immature Gran % (Auto) (0.0-0.4) % Neut % (Auto) (45-73) % Lymph % (Auto) (20-40) % Perry % (Auto) (2-11) % Eos % (Auto) (0-4) % Baso % (Auto) (0-2) % Lymph # (Auto) (1.2-4.9) X10*3/uL Perry # (Auto) (0.1-1.2) X10*3/uL Eos # (Auto) (0.0-0.4) X10*3/uL Baso # (Auto) (0.0-0.2) X10*3/uL Abs Immat Gran (auto) (0.00-0.03) X10*3/uL Absolute Neuts (auto) (2.0-8.3) x10*3/uL Absolute Nucleated RBC (0.0-0.012) X10*3/uL Nucleated RBC % (auto) (0.0-0.2) /100WBC PT (10.9-12.4) SEC INR (0.9-1.1) Sodium (135-145) mmol/L Potassium (3.3-5.1) mmol/L Chloride (96-108) mmol/L Carbon Dioxide (22-29) mmol/L Anion Gap (12-20) BUN (9-16) mg/dL Creatinine (0.5-1.4) mg/dL Estim Creat Clear Calc Estimated GFR POC Glucose 197 H 154 H (60-115) mg/dL Random Glucose (60-115) mg/dL Calcium (8.4-10.2) mg/dL Magnesium (1.6-2.6) mg/dL Total Bilirubin (0.0-1.0) mg/dL AST (5-31) U/L ALT (0-31) U/L Alkaline Phosphatase (39-117) U/L Troponin I High Sens (<3.5-17.0) ng/L C-Reactive Protein (< or = 0.50) mg/dL Total Protein (6.5-8.0) g/dL Albumin (3.5-5.0) g/dL Urine Color Urine Appearance Urine pH (5.0-9.0) Ur Specific [place] (1.005-1.025) Urine Protein (Neg-Trace) mg/dL Urine Glucose (UA) (Negative) mg/dL Urine Ketones (Negative) mg/dL Urine Blood (Negative) Urine Nitrite (Negative) Ur Leukocyte Esterase (Negative) Urine RBC (0-2) /HPF Urine WBC (0-5) /HPF Ur Squamous Epith Cells (0-2) /HPF Urine Bacteria (None Seen) Hyaline Casts (0-2) /LPF COVID-19 (CARMELA) COVID-19 Clin Com Influenza Type A (BECCA) Influenza Type B (BECCA) Influenza A & B Note Discharge Plan Discharge Clinical Impression: Left leg pain, Difficulty walking Patient Disposition: Xfer Inpatient Rehab Fac Transfer Details: [facility] [place] Instructions: Leg Pain (ED) Additional Instructions: Please continue all at-home medications as prescribed. Follow-up with your primary care physician. If any new or worsening symptoms occur including but not limited to severe chest pain, shortness of breath, please seek emergent care. Prescriptions: No Action ibuprofen 600 mg tablet 600 mg PO Q8H PRN (Reason: fever or pain) Qty: 20 0RF losartan 50 mg tablet 50 mg PO DAILY tramadol 50 mg tablet 50 mg PO TID acetaminophen 650 mg tablet extended release 650 mg PO Q8H PRN (Reason: pain) levothyroxine 75 mcg tablet 75 mcg PO DAILY@0600 docusate sodium 100 mg capsule 100 mg PO BID hydrochlorothiazide 25 mg tablet 25 mg PO DAILY diclofenac sodium 1 % gel 2 g topical BID insulin degludec [Tresiba FlexTouch U-100] 100 unit/mL (3 mL) insulin pen 30 unit subcut BEDTIME Jardiance 25 mg tablet 25 mg PO QAM omeprazole 40 mg capsule,delayed release(DR/EC) 40 mg PO QAM amlodipine 10 mg tablet 10 mg PO DAILY insulin lispro 100 unit/mL insulin pen 10 unit subcut DAILY Januvia 50 mg tablet 50 mg PO DAILY Referrals: Bre Samuel NP [Nurse Practitioner, Internal Medicine] Interventions: ED Discharge Assessment Last Done: 10/21/24 17:38 Discharge Date/Time: 10/21/24 17:44 Print Language: [place]
--- NOTE | 2024-10-18 12:24 | ECG_ITS ---
Test Reason : WEAKNESS Blood Pressure : */* mmHG Vent. Rate : 82 BPM Atrial Rate : 82 BPM P-R Int : 134 ms QRS Dur : 116 ms QT Int : 420 ms P-R-T Axes : 54 -34 107 degrees QTcB Int : 490 ms Sinus rhythm with Premature supraventricular complexes Left axis deviation Left ventricular hypertrophy with QRS widening and repolarization abnormality ( R in aVL , [place] product ) Inferior infarct , age undetermined Abnormal ECG When compared with ECG of 11-Oct-2022 21:37, Premature supraventricular complexes are now Present Referred By: Vahid Villagran Electronically Signed By: CHRISTIAN PARK
[2024-10-18 13:16] LABS: MANUAL DIFF FLAG NO
[2024-10-18 13:17] LABS: Hematocrit 38.8 % (37.0-47.0); Hemoglobin 12.2 g/dl (12.0-16.0); Imm Gran Abs Auto 0.09 X10*3/uL (0.00-0.03); Imm Gran Pct Auto 0.5 % (0.0-0.4); Lymphocytes Absolute Auto 2.3 X10*3/uL (1.2-4.9); Mean Corpuscular HGB Conc 31.4 g/dl (31.0-35.0); Mean Corpuscular Hemoglobin 25.9 pg (27.0-33.0); Mean Corpuscular Volume 82.4 fL (80.0-98.0); NRBC Abs Auto 0.000 X10*3/uL (0.0-0.012); NRBC Pct Auto 0.0 /100WBC (0.0-0.2); Platelet Count 305 X10*3/uL (160-400); Red Blood Count 4.71 X10*6/uL (4.20-5.50); White Blood Count 16.5 X10*3/uL (4.8-10.8)
[2024-10-18 13:22] LABS: INTERNATIONAL NORM RATIO 0.9 (0.9-1.1); Prothrombin Time 10.8 SEC (10.9-12.4)
[2024-10-18 13:37] LABS: Alanine Aminotransferase 11 U/L (0-31); Albumin Level 3.8 g/dL (3.5-5.0); Alkaline Phosphatase 97 U/L (39-117); Anion Gap 13 (12-20); Aspartate Amino Transferase 22 U/L (5-31); Blood Urea Nitrogen 20 mg/dL (9-16); Calcium 9.4 mg/dL (8.4-10.2); Carbon Dioxide 28 mmol/L (22-29); Chloride 104 mmol/L (96-108); Creatinine Clr Calc Pharmacy 48.1; Estimated Glomerular Filt Rate > 60; Magnesium 2.1 mg/dL (1.6-2.6); Potassium 3.6 mmol/L (3.3-5.1); Sodium 141 mmol/L (135-145); Total Protein 6.9 g/dL (6.5-8.0)
[2024-10-18 13:45] LABS: Troponin-I High Sensitivity 9.8 ng/L (<3.5-17.0)
[2024-10-18 14:08] VITALS: BP 167/73; PULSE 77; RESP 18; O2SAT 96
[2024-10-18 14:23] LABS: Appearance Urine Clear; Glucose Urine UA >=1000 mg/dL (Negative); PH 6.5 (5.0-9.0); Specific Gravity - Urine 1.025 (1.005-1.025); UMIC TRIGGER UACC YES
[2024-10-18 14:39] LABS: IDNOW Serial# 55D5AD1C
[2024-10-18 14:40] LABS: COVID-19 Test Negative (Negative); IDNOW Serial# 58CA691E; Influenza B2 Negative (Negative)
[2024-10-18 16:07] VITALS: BP 168/54; PULSE 71; RESP 14; O2SAT 99
[2024-10-18] MEDS: iohexoL 350 MG/ML 100 ML INFUS..BTL IV (16:17)
--- NOTE | 2024-10-18 17:04 | MHC.EDTECH ---
Purewick in place. Pt sitting comfortably at this time.
[2024-10-18 17:48] VITALS: BP 137/44; PULSE 77; RESP 18; O2SAT 96
--- NOTE | 2024-10-18 18:01 | PC.NURSE ---
Patient's med rec completed w/ daughter whom was able to confirm all meds and last taken date. Dr. Redding made aware, to order.
[2024-10-18 19:40] VITALS: BP 168/51; PULSE 74; RESP 16; TEMP 36.8; O2SAT 94
--- NOTE | 2024-10-18 19:44 | PC.NURSE ---
Patient transferred onto hospital bed, resting quietly at this time.
[2024-10-18 21:06] LABS: Glucose, Whole Blood 174 mg/dL (60-115)
[2024-10-18] MEDS: Insulin Glargine,Hum.rec.anlog 100 UNIT/ML 10 ML VIAL 21 UNIT SUBCUT (22:02)
--- NOTE | 2024-10-18 22:05 | PC.NURSE ---
pt and dtr state that pt has diarrhea so they declined the docusate.
--- NOTE | 2024-10-19 04:40 | MHC.EDTECH ---
@[id number] RECLINER GIVEN TO THE PATIENT'S DAUGHTER FOUND SLEEPING IN CHAIR IN PATIENT'S ROOM.
[2024-10-19 06:29] VITALS: BP 170/62; PULSE 64; RESP 15; TEMP 36.8; O2SAT 97
--- NOTE | 2024-10-19 07:52 | PHA.MEDREC ---
Pharmacy Consult ? Medication Reconciliation Pharmacy has completed the medication reconciliation. Reviewed med rec completed by nursing, matches claim history.
[2024-10-19 07:56] LABS: Glucose, Whole Blood 81 mg/dL (60-115)
--- NOTE | 2024-10-19 10:38 | MHC.CM.ED ---
Received case management consult overnight. Patient came to the ER due to LLE and weakness. Work up essentially negative. Physical therapy eval ordered. Not available until Friday 10/20. Met with patient and daughters Abraham and Cheryle. Patient lives with Abraham, uses a walker/cane for mobility, has [employer] hours through [facility] and a RN that sees patient every 3 months from insurance company. HCP completed, signed and witnessed. Original given to patient. Copy placed in chart. Patient was in STR in 2010 after a knee replacement. Patient and daughters are aware PT eval is not available until tomorrow and that patient will remain in the ER overnight. If PT rec home with therapy, BLS transport will be needed because patient's bedroom is on the 2nd floor. Referral will be sent for STR within 15 miles of patient's home to all facilities that are contracted with patient's insurance. Bed offers will be discussed with patient and daughters. Continue to monitor for d/c needs.
[2024-10-19 10:50] VITALS: BP 174/56
[2024-10-19 10:51] VITALS: BP 174/56
[2024-10-19 13:29] LABS: Glucose, Whole Blood 141 mg/dL (60-115)
--- NOTE | 2024-10-19 15:28 | PC.NURSE ---
Report given to overflow nurse, pt to transfer in hosp bed
[2024-10-19 16:33] VITALS: BP 139/58; PULSE 74; RESP 14; TEMP 36.9; O2SAT 99
[2024-10-19 18:10] LABS: Glucose, Whole Blood 152 mg/dL (60-115)
[2024-10-19 20:56] LABS: Glucose, Whole Blood 160 mg/dL (60-115)
[2024-10-19 21:04] VITALS: BP 163/92; PULSE 75; RESP 16; TEMP 36.4
[2024-10-19] MEDS: Insulin Glargine,Hum.rec.anlog 100 UNIT/ML 10 ML VIAL 21 UNIT SUBCUT (21:43)
[2024-10-20 06:00] VITALS: BP 146/49; PULSE 81; RESP 16; TEMP 36.8; O2SAT 97
--- NOTE | 2024-10-20 07:39 | PC.NURSE ---
pt alert and oriented x4, pt medicated as per mar for pain to R shoulder and knees. Ice packs used with further effect. Daughter provided with recliner to stay the night. Pt denies further complaints.
[2024-10-20 07:49] LABS: Glucose, Whole Blood 75 mg/dL (60-115)
[2024-10-20 09:59] VITALS: BP 146/49; PULSE 81; O2SAT 97
[2024-10-20 14:00] VITALS: BP 149/82; PULSE 91; RESP 16; TEMP 36.7; O2SAT 95
--- NOTE | 2024-10-20 14:31 | MHC.CM.PN ---
DX LLE Pain. PT eval performed the recommendation is STR. Referrals sent A bed offer has been accepted from [facility]. They have been asked to start insurance authorization. DP EDDIE @ [facility] via BLS pending insurance auth being obtained.
[2024-10-20 16:05] LABS: Glucose, Whole Blood 187 mg/dL (60-115)
--- NOTE | 2024-10-20 18:08 | MHC.EDTECH ---
Patient bed pad changed, Purwick changed and repositioned
[2024-10-20] MEDS: Insulin Glargine,Hum.rec.anlog 100 UNIT/ML 10 ML VIAL 21 UNIT SUBCUT (20:52)
[2024-10-20 20:53] LABS: Glucose, Whole Blood 124 mg/dL (60-115)
[2024-10-20 22:00] VITALS: BP 161/74; PULSE 85; RESP 18; TEMP 36.5; O2SAT 96
--- NOTE | 2024-10-20 22:50 | PC.NURSE ---
Family at bedside is requesting Trazadone 50mg as pt takes this every night at bedtime and has not been receiving it. [place] text sent to [facility]. New order to be placed in APR.
[2024-10-21 05:33] VITALS: BP 164/58; PULSE 67; RESP 18; TEMP 36.4; O2SAT 95
--- NOTE | 2024-10-21 06:36 | PC.NURSE ---
Addendum entered by Nelsy Holly RN 10/21/24 06:43: Call newby is within reach and bed alarm in place. Original Note: Pt calm and cooperative resting at the bedside. Slept intermittently throughout the night with no concerns. Kathleen care provided twice in the night as pt was incontinent of urine. Pt medicated as per APR and is able to swallow pills whole with no complications. Family at bedside left around midnight and stated will return in the morning. Daughters are aware of plan of care. Monitoring is ongoing.
[2024-10-21 07:20] LABS: Glucose, Whole Blood 135 mg/dL (60-115)
[2024-10-21 08:36] VITALS: BP 172/74
[2024-10-21 08:37] VITALS: BP 172/74
--- NOTE | 2024-10-21 10:01 | PC.NURSE ---
Addendum entered by Marlene Russo RN 10/21/24 10:06: Pt reports itchiness to back, hygiene care provided this AM and lotion applied to back. Provider notified. Original Note: Assumed care of pt approx 0700, resting comfortably in bed with respirations even/unlabored. Tolerated breakfast without difficulty, purewick in place draining CYU. Medicated per APR, pt reports 09/04 pain- sched Ultram given with + effect. Daughter at bedside.
[2024-10-21 11:44] LABS: Glucose, Whole Blood 197 mg/dL (60-115)
[2024-10-21 13:19] VITALS: BP 160/70; PULSE 82; RESP 16; TEMP 37; O2SAT 95
[2024-10-21 15:44] VITALS: BP 148/77; PULSE 94; RESP 16; TEMP 36.8; O2SAT 95
[2024-10-21 16:02] LABS: Glucose, Whole Blood 154 mg/dL (60-115)
[2024-10-21 17:38] VITALS: BP 148/77; PULSE 94; RESP 16; TEMP 36.8; O2SAT 95
--- NOTE | 2024-10-21 17:43 | PC.NURSE ---
[facility] transfer to [facility], report given to nurse at facility.
== END 2024-10-21 17:44 ==
PROVIDERS: Emergency Provider Emergency Medicine; PCP Internal Medicine
DX: M25.562 Pain in left knee (principal); R53.1 Weakness; R19.7 Diarrhea, unspecified; E11.9 Type 2 diabetes mellitus without complications; R26.2 Difficulty in walking, not elsewhere classified; R94.31 Abnormal electrocardiogram [ECG] [EKG]; R10.2 Pelvic and perineal pain; Z79.899 Other long term (current) drug therapy; Z96.651 Presence of right artificial knee joint; Z91.81 History of falling; Z79.4 Long term (current) use of insulin; Z03.818 Encounter for observation for suspected exposure to other biological agents ruled out
CPT/HCPCS: 36415; 70450; 71046; 73502; 73564; 74177; 80053; 81001; 82947; 83735; 84484; 85025; 85610; 86140; 87502; 87635; 93005; 96365; 97162; 99285; J0131; Q9967

== ENCOUNTER → 2024-10-18 12:24 | Outpatient (BNV) | payer OTHER, SELFPAY | PROVIDERS: Emergency Provider Emergency Medicine; PCP Dentist General Practice; Visit Provider Internal Medicine | DX: I49.1 Atrial premature depolarization (principal); I51.7 Cardiomegaly | CPT/HCPCS: 93010 ==

== ENCOUNTER → 2024-10-18 12:59 | Outpatient (BNV) | payer OTHER, SELFPAY | PROVIDERS: Emergency Provider Emergency Medicine; PCP Dentist General Practice; Visit Provider Radiology Diagnostic Radiology | DX: K57.30 Diverticulosis of large intestine without perforation or abscess without bleeding (principal); K43.9 Ventral hernia without obstruction or gangrene; K42.9 Umbilical hernia without obstruction or gangrene; R53.1 Weakness; R26.2 Difficulty in walking, not elsewhere classified; M79.662 Pain in left lower leg; M25.552 Pain in left hip; W19.XXXA Unspecified fall, initial encounter; R06.09 Other forms of dyspnea | CPT/HCPCS: 70450; 71046; 73502; 73564; 74177 ==